=== PATIENT | female | born 1950 | race American Indian/Alaskan Native ===

== ENCOUNTER 2017-10-31 01:14 | Inpatient (IN) | payer MEDICARE, OTHER ==
[2017-10-31 01:26] VITALS: BMI 53.8
[2017-10-31] MEDS ORDERED: Albuterol-Ipratrop 3 mg / 0.5 (3 ml) UD IH STA (01:33)
--- NOTE | 2017-10-31 01:40 | ED PDOC ---
Arrival/HPI - General Historian: Patient - History of Present Illness Time/Duration: 1 week Symptom Onset: Gradual Symptom Course: Worsening Quality: Other (SOB) <Herber Maradiaga - Last Filed: 10/31/17 06:00> <Lloyd Castaneda - Last Filed: 10/31/17 06:48> - General Chief Complaint: Shortness Of Breath Time Seen by Provider: 10/31/17 01:18 - History of Present Illness Narrative History of Present Illness (Text): 10/31/17 01:59 Patient is a 66 year old female with a past medical history of diabetes, HTN and questionable CHF presenting with shortness of breath. Patient states she has been experiencing worsening shortness of breath with wheezing over the past week. The wheezing got so bad tonight that had to call for EMS to pick her up. Patient is a poor historian in that she is not positive of all of her past medical history and does not know her medications. Patient states she has been feeling well otherwise and has no other complaints. Denies fevers, chills, nausea, vomiting, diarrhea, constipation, chest pain, abdominal pain, vision changes, urinary symptoms, numbness or tingling. (Herber Maradiaga) Past Medical History - Provider Review Nursing Documentation Reviewed: Yes - Reproductive Menopause: Yes - Cardiac Hx Hypertension: Yes - Pulmonary Hx Asthma: Yes - Endocrine/Metabolic Hx Diabetes Mellitus Type 2: Yes - Musculoskeletal/Rheumatological Hx Back Pain: Yes - Psychiatric Hx Substance Use: No - Surgical History Hx Tubal Ligation: Yes - Anesthesia Hx Anesthesia: No <Herber Maradiaga - Last Filed: 10/31/17 06:00> Family/Social History - Physician Review Nursing Documentation Reviewed: Yes Family/Social History: No Known Family HX Smoking Status: Never Smoked Hx Alcohol Use: No Hx Substance Use: No <Herber Maradiaga - Last Filed: 10/31/17 06:00> Allergies/Home Meds <Herber Maradiaga - Last Filed: 10/31/17 06:00> <Lloyd Castaneda - Last Filed: 10/31/17 06:48> Allergies/Adverse Reactions: Allergies No Known Allergies Allergy (Verified 10/31/17 01:29) Home Medications: Home Meds Medication Instructions Recorded Confirmed Unobtainable 10/31/17 10/31/17 Review of Systems - Physician Review All systems were reviewed & negative as marked: Yes - Review of Systems Constitutional: Normal. absent: Fatigue, Fevers Eyes: Normal ENT: Normal Respiratory: SOB. absent: Cough, Sputum, Wheezing Cardiovascular: Normal. absent: Chest Pain, Palpitations, Calf Pain, GARCIA Gastrointestinal: Normal. absent: Abdominal Pain, Constipation, Diarrhea, Nausea, Vomiting Musculoskeletal: Normal Skin: Normal Neurological: Normal Endocrine: Normal Hemo/Lymphatic: Normal Psychiatric: Normal <Herber Maradiaga - Last Filed: 10/31/17 06:00> Physical Exam Vital Signs Reviewed: Yes Temperature: Afebrile Blood Pressure: Hypertensive Pulse: Tachycardic Respiratory Rate: Normal Appearance: Positive for: Non-Toxic, Comfortable, Ill-Appearing, Other ( morbidly obese) Pain Distress: None Mental Status: Positive for: Alert and Oriented X 3 Finger Stick Blood Glucose: 209 - Systems Exam Head: Present: Atraumatic, Normocephalic Pupils: Present: PERRL Extroacular Muscles: Present: EOMI Conjunctiva: Present: Normal Mouth: Present: Moist Mucous Membranes Nose (External): Present: Atraumatic Nose (Internal): Present: Normal Inspection, No Active Bleeding, Moist Neck: Present: Normal Range of Motion, Trachea Midline. No: MIDLINE TENDERNESS , JVD Respiratory/Chest: Present: Clear to Auscultation, Good Air Exchange, Wheezes ( end-expiratory), Decreased Breath Sounds (likely 2/2 body habitus ). No: Respiratory Distress, Accessory Muscle Use, Rales, Retracting, Rhonchi, Tachypneic Cardiovascular: Present: Regular Rate and Rhythm, Normal S1, S2. No: Murmurs Abdomen: No: Tenderness, Distention, Peritoneal Signs Back: Present: Normal Inspection Upper Extremity: Present: Normal Inspection, NORMAL PULSES. No: Cyanosis, Edema Lower Extremity: Present: Normal Inspection, Edema (1+ pitting b/l), NORMAL PULSES. No: CALF TENDERNESS Neurological: Present: GCS=15, Speech Normal, Motor Func Grossly Intact, Normal Sensory Function Skin: Present: Warm, Dry, Normal Color. No: Rashes Psychiatric: Present: Alert, Oriented x 3, Normal Insight, Normal Concentration <Herber Maradiaga - Last Filed: 10/31/17 06:00> Vital Signs Temp Pulse Resp BP Pulse Ox 10/31/17 06:20 95 H 18 149/64 100 10/31/17 06:09 155/54 H 10/31/17 05:45 93 H 18 147/76 99 10/31/17 04:10 98.5 F 97 H 18 150/71 100 10/31/17 02:01 100 H 20 141/98 H 96 10/31/17 01:30 14 99 10/31/17 01:25 115 H 21 171/101 H 99 Medical Decision Making Re-evaluation Time: 03:03 Reassessment Condition: Improving,but remains with symptoms - Lab Interpretations I have reviewed the lab results: Yes - RAD Interpretation Auto Mechanics Instructor: ED Physician, Radiologist - EKG Interpretation Interpreted by ED Physician: Yes Type: 12 lead EKG Comparison: No previous EKG avail. <Herber Maradiaga - Last Filed: 10/31/17 06:00> <Lloyd Castaneda - Last Filed: 10/31/17 06:48> ED Course and Treatment: 10/31/17 02:38 Happy, morbidly obese female speaking is broken sentences. She was brought in by EMS on a non-rebreather mask only, was not given any breathing treatments en route to hospital. Labs, CXR and EKG Duoneb 10/31/17 03:11 D-Dimer is positive. Patient is unable to fit in CT scanner due to large body habitus. Will get V/Q scan Patient placed back on NC Oxygen due to feeling SOB again after being on room air for 15-20 minutes 10/31/17 06:01 VQ scan normal, no signs of PE. Patient is still SOB. Will admit patient to tele for CHF exacerbation. Give 40mg of Lasix and 20meq of Potassium. (Herber Maradiaga) Impression: Patient seen and evaluated with ophthalmic medical technician. Pt, whose past medical history includes diabetes and hypertension, presented for shortness of breath and wheezing. Aware and agree with HPI, clinical findings, plan, and management. Plan: -- EKG -- CXR -- Labs, cardiac enzymes, BNP, D-dimer -- UA -- Duoneb -- Reassess and disposition 10/31/17 05:[address] Agee, who is aware and agrees with plan. Accepts pt in to his service. Pt will go to telemetry observation for CHF. Requests Dr. Ram. vice president of finance notified. (Lloyd Castaneda) - Lab Interpretations Lab Results: 10/31/17 01:23 10/31/17 01:23 Lab Results 10/31/17 01:29: POC Glucose (mg/dL) 209 H 10/31/17 01:23: NT-Pro-B Natriuret Pep 1490 H 10/31/17 01:23: Sodium 141, Potassium 3.8, Chloride 104, Carbon Dioxide 25, Anion Gap 16, BUN 13, Creatinine 0.7, Est GFR ( Amer) > 60, Est GFR (Non- Af Amer) > 60, Random Glucose 237 H, Calcium 9.6, Magnesium 1.6 L, Total Bilirubin 0.5, AST 15, ALT 14, Alkaline Phosphatase 81, Lactate Dehydrogenase 538, Total Creatine Kinase 41, Troponin I < 0.01, Total Protein 7.4, Albumin 3.5 , Globulin 3.9, Albumin/Globulin Ratio 0.9 L 10/31/17 01:23: D-Dimer, Quantitative 513 H 10/31/17 01:23: WBC 10.4, RBC 5.28, Hgb 11.4 L, Hct 36.4, MCV 68.9 L, MCH 21.6 L , MCHC 31.3, RDW 17.1 H, Plt Count 255, MPV 10.1, Gran % 71.7 H, Lymph % (Auto) 21.9 L, [place] % (Auto) 5.9, Eos % (Auto) 0.4 L, Baso % (Auto) 0.1, Gran # 7.48 H , Lymph # (Auto) 2.3, [place] # (Auto) 0.6, Eos # (Auto) 0.0, Baso # (Auto) 0.01 - RAD Interpretation Narrative RAD Interpretations (Text): 10/31/17 03:10 CXR - vascular congestion b/l, no pleural effusions 10/31/17 06:04 VQ scan - No findings to suggest pulmonary embolism. (Herber Maradiaga) Radiology Orders: 10/31/17 01:31 CHEST PORTABLE [RAD] Stat 10/31/17 04:43 LUNG PERF & VENT SCAN [NM] Stat - EKG Interpretation EKG Interpretation (Text): 10/31/17 01:37 Sinus Tachycardia at 112bpm, normal axis, flipped T waves in leads V4-V5, with PVCs (Herber Maradiaga) - Medication Orders Current Medication Orders: Discontinued Medications Albuterol/Ipratropium (Duoneb 3 Mg/0.5 Mg (3 Ml) Ud) 3 ml IH STAT STA Stop: 10/31/17 01:34 Last Admin: 10/31/17 01:34 Dose: 3 ml Furosemide (Lasix) 40 mg IVP STAT STA Stop: 10/31/17 06:00 Last Admin: 10/31/17 06:09 Dose: 40 mg MAR Blood Pressure Document 10/31/17 06:09 (Rec: 10/31/17 06:09 [id number]) Blood Pressure Blood Pressure (100/60-150/90) 155/54 IVP Administration Document 10/31/17 06:09 (Rec: 10/31/17 06:09 [id number]) Charges for Administration # of IVP Administrations 1 Potassium Chloride (K-Dur 20 Meq Er Tab) 20 meq PO STAT STA Stop: 10/31/17 06:00 Last Admin: 10/31/17 06:10 Dose: 20 meq - PA / SOUNDSCRIBER MECHANIC / Resident Statement / has reviewed & agrees with the documentation as recorded. / has examined the patient and agrees with the treatment plan. <Lloyd Castaneda - Last Filed: 10/31/17 06:48> Disposition/Present on Arrival - Present on Arrival Any Indicators Present on Arrival: Yes History of DVT/PE: No History of Uncontrolled Diabetes: Yes Urinary Catheter: No History of Decub. Ulcer: No History Surgical Site Infection Following: None - Disposition Have Diagnosis and Disposition been Completed?: Yes Disposition Time: 06:03 Patient Plan: Admission, Telemetry <Herber Maradiaga - Last Filed: 10/31/17 06:00> - Present on Arrival Any Indicators Present on Arrival: No History of DVT/PE: No History of Uncontrolled Diabetes: Yes Urinary Catheter: No History of Decub. Ulcer: No History Surgical Site Infection Following: None - Disposition Have Diagnosis and Disposition been Completed?: Yes <Lloyd Castaneda - Last Filed: 10/31/17 06:48> - Disposition Diagnosis: CHF exacerbation Disposition: HOSPITALIZED Patient Problems: Current Active Problems Problem Status Onset CHF exacerbation Acute Condition: GUARDED
[2017-10-31 02:05] LABS: BASO # 0.01 K/mm3 (0.0-2.0); BASO % 0.1 % (0.0-3.0); EOS % 0.4 % (1.5-5.0); GRAN # 7.48 (1.4-6.5); GRAN % 71.7 % (50.0-68.0); HEMOGLOBIN 11.4 g/dL (12.0-16.0); LYMPH # 2.3 (1.2-3.4); LYMPH % 21.9 % (22.0-35.0); MEAN CELL VOLUME 68.9 fl (80.0-105.0); MEAN CORPUSCULAR HEMOGLOBIN 21.6 pg (25.0-35.0); MEAN CORPUSCULAR HGB CONC 31.3 g/dl (31.0-37.0); MEAN PLATELET VOLUME 10.1 fl (7.0-11.0); MONO # 0.6 (0.1-0.6); MONO % 5.9 % (1.0-6.0); RBC 5.28 10^6/uL (3.5-6.1); RED CELL DISTRIBUTION WIDTH 17.1 % (11.5-14.5); WHITE BLOOD COUNT 10.4 10^3/ul (4.5-11.0)
[2017-10-31 02:15] LABS: ALB/GLOB RATIO 0.9 (1.1-1.8); ALBUMIN 3.5 g/dL (3.0-4.8); ALT/SGPT 14 U/L (7-56); AST/SGOT 15 U/L (14-36); BLOOD UREA NITROGEN 13 mg/dL (7-21); CALCIUM 9.6 mg/dL (8.4-10.5); GFR NON-AFRICAN AMERICAN > 60
[2017-10-31 02:26] LABS: TROPONIN I < 0.01 ng/mL
[2017-10-31] MEDS ORDERED: Iodixanol 320 MG/ML 100 ML BOTTLE IV ONE (03:00)
[2017-10-31] MEDS ORDERED: Potassium Chloride 20 mEq ER Tab PO STA (05:59)
[2017-10-31 07:13] LABS: URINE BILIRUBIN NEGATIVE (NEGATIVE); URINE BLOOD NEGATIVE (NEGATIVE); URINE GLUCOSE (UA) 100 mg/dL (NEGATIVE); URINE LEUKOCYTE ESTERASE NEGATIVE Leu/uL (NEGATIVE); URINE PROTEIN 100 mg/dL (<30 mg/dL); URINE UROBILINOGEN 0.2 E.U./dL (<1 E.U./dL)
[2017-10-31 07:35] LABS: URINE APPEARANCE CLEAR (CLEAR); URINE COLOR YELLOW (YELLOW)
[2017-10-31 07:49] LABS: URINE BACTERIA MANY (NEG)
[2017-10-31 07:50] LABS: URINE COARSE GRANULAR CAST TRACE /hpf (0-2)
[2017-10-31 07:51] LABS: URINE AMORPHOUS SEDIMENT SMALL
[2017-10-31] MEDS ORDERED: Magnesium Sulfate 2 gm/50 ml 2 GM/50 ML BAG IVPB ONE (08:23)
--- NOTE | 2017-10-31 09:04 | RAD ---
Date of service: 10/31/2017 HISTORY: sob COMPARISON: No prior. FINDINGS: LUNGS: No active pulmonary disease. PLEURA: No significant pleural effusion identified, no pneumothorax apparent. CARDIOVASCULAR: Mild cardiomegaly and mild vascular congestion OSSEOUS STRUCTURES: No significant abnormalities. VISUALIZED UPPER ABDOMEN: Normal. OTHER FINDINGS: None. IMPRESSION: Mild cardiomegaly and mild vascular congestion
[2017-10-31] MEDS ORDERED: Potassium Chloride 20 mEq ER Tab PO SCH (10:00)
--- NOTE | 2017-10-31 10:15 | CARD ---
APPROVED REPORT Date of service: 10/31/2017 EKG Measurement Heart [id number] <Conclusion> Sinus tachycardia with frequent premature ventricular complexes Possible Left atrial enlargement Nonspecific T wave abnormality Abnormal ECG
--- NOTE | 2017-10-31 10:42 | CT ---
Date of service: 10/31/2017 PROCEDURE: CT Chest without contrast HISTORY: CHF/PNEUMONIA COMPARISON: None available. TECHNIQUE: Contiguous axial images were obtained through the chest without intravenous contrast enhancement. Sagittal and coronal reconstructions were performed. Radiation dose (DLP): 71912.14 mGy-cm. This CT exam was performed using one or more of the following dose reduction techniques: Automated exposure control, adjustment of the mA and/or kV according to patient size, and/or use of iterative reconstruction technique. FINDINGS: LUNGS: Mild pulmonary vascular congestion is noted. There are small conglomerate calcified nodule seen at the left lung upper lobe image 38 series 3. No evidence of focal infiltrate or consolidation in the lungs to suggest pneumonia. MEDIASTINUM: The thoracic aorta is ectatic and tortuous. Mildly dilated ascending thoracic aorta is noted measures 3.6 centimeter in the transverse diameter. . No aneurysm. The heart is mildly enlarged. Normal sized heart. Mildly enlarged main pulmonary artery. No evidence of significant lymphadenopathy. PLEURA: There are small bilateral pleural effusions seen. BONES: No fracture. No destructive lesion. UPPER ABDOMEN: Moderate to large size hiatal hernia is noted. No evidence of acute pathology in the visualized portion of the upper abdomen. OTHER FINDINGS: None. IMPRESSION: No definite radiographic evidence of pneumonia. Large hiatus hernia. Cardiomegaly and small bilateral pleural effusions associated with [id number] pulmonary vascular congestion. Mildly enlarged main pulmonary artery.
[2017-10-31] MEDS: Enoxaparin 40 mg Syringe SC SCH (10:45)
[2017-10-31] MEDS: POLYETHYLENE GLYCOL 3350 17 GM/Dose PACKET PO SCH ×2 (10:47→17:06)
[2017-10-31] MEDS: Magnesium Oxide 400 mg Tab UD PO SCH ×2 (10:48→17:07)
[2017-10-31] MEDS: Levalbuterol 1.25 MG/3 ML Inhal Soln UD IH SCH ×2 (10:48→19:47)
--- NOTE | 2017-10-31 11:18 | CP.PCM.HP ---
<LakeishaLuis M wright - Last Filed: 10/31/17 12:34> History of Present Illness - History of Present Illness History of Present Illness: Luis M Suazo PGY2 H&P Note for Dr. Agee cc: sob x 3 days Ms Rosales is a 66 year old Female with a PMH of DM2, HTN, HLD , medication non-compliance, Asthma and questionable CHF with morbid obesity who presents to the ED with shortness of breath x1 week that is worsened over the past 3 days. She states that the dyspnea is exertional and relieved by rest and only partially by her rescue inhaler. She is unable to lay flat when she sleeps, at baseline. She patient does not have her complete list of medications with her and is not compliant with the medications she has at home (eg states she doesn't take her Lasix regularly). She states she was on ASA/Plavix before but had an episode of hematochezia and her meds were discontinued; she doesn't recall the reason for the DAPT. The patient denies any cough, chest pain, abdominal pain, fevers/chills, nausea/vomiting/diarrhea, recent travel or sick contacts. 12-pt ROS was reviewed and is otherwise unremarkable. PMD: Dr. Ramos PMH as above PSH tubal ligation SHx chews tobacco currently, denies Etoh or drug use, lives w/ son FHx non-contributory Meds as per MAR, reviewed Present on Admission - Present on Admission Any Indicators Present on Admission: No Review of Systems - Review of Systems All systems: reviewed and no additional remarkable complaints except (as per HPI ) Past Patient History - Past Medical History & Family History Past Medical History?: Yes - Past Social History Smoking Status: Never Smoked Chewing Tobacco Use: Yes Alcohol: None Drugs: Denies Home Situation {Lives}: With Family - CARDIAC Hx Congestive Heart Failure: Yes Hx Hypercholesterolemia: Yes Hx Hypertension: Yes - PULMONARY Hx Asthma: Yes - NEUROLOGICAL Hx Neurological Disorder: No - HEENT Hx HEENT Problems: No - RENAL Hx Chronic Kidney Disease: No - ENDOCRINE/METABOLIC Hx Diabetes Mellitus Type 2: Yes - HEMATOLOGICAL/ONCOLOGICAL Hx Anemia: Yes - INTEGUMENTARY Hx Dermatological Problems: No - MUSCULOSKELETAL/RHEUMATOLOGICAL Hx Back Pain: Yes - GASTROINTESTINAL Other/Comment: obesity - GENITOURINARY/GYNECOLOGICAL Hx Genitourinary Disorders: No - PSYCHIATRIC Hx Psychophysiologic Disorder: No Hx Substance Use: No - SURGICAL HISTORY Hx Tubal Ligation: Yes - ANESTHESIA Hx Anesthesia: No Meds Allergies/Adverse Reactions: Allergies Allergy/AdvReac Type Severity Reaction Status Date / Time No Known Allergies Allergy Verified 10/31/17 01:29 Physical Exam - Constitutional Appears: Well, Non-toxic, No Acute Distress - Head Exam Head Exam: NORMAL INSPECTION - Eye Exam Eye Exam: EOMI, Normal appearance, PERRL - ENT Exam ENT Exam: Mucous Membranes Dry - Neck Exam Neck exam: Positive for: Normal Inspection - Respiratory Exam Respiratory Exam: Decreased Breath Sounds, Wheezes. absent: Rales, Rhonchi, Respiratory Distress - Cardiovascular Exam Cardiovascular Exam: Tachycardia, +S1, +S2. absent: Systolic Murmur - GI/Abdominal Exam GI & Abdominal Exam: Soft. absent: Distended, Tenderness Additional comments: obese body habitus - Extremities Exam Extremities exam: Positive for: normal inspection. Negative for: pedal edema - Back Exam Back exam: NORMAL INSPECTION - Neurological Exam Neurological exam: Alert, Oriented x3 - Psychiatric Exam Psychiatric exam: Normal Mood - Skin Skin Exam: Warm Results - Vital Signs Recent Vital Signs: Last Vital Signs Temp 98.5 F 10/31/17 04:10 Pulse 95 H 10/31/17 06:20 Resp 18 10/31/17 06:20 BP 153/78 H 10/31/17 10:45 Pulse Ox 100 10/31/17 06:20 - Labs Result Diagrams: 10/31/17 01:23 10/31/17 01:23 Labs: Laboratory Results - last 24 hr 10/31/17 10/31/17 06:45 08:30 Retic Count 1.57 H Urine Color Yellow Urine Appearance Clear Urine pH 6.0 Ur Specific [place] 1.025 Urine Protein 100 H Urine Glucose (UA) 100 H Urine Ketones Negative Urine Blood Negative Urine Nitrate Negative Urine Bilirubin Negative Urine Urobilinogen 0.2 Ur Leukocyte Esterase Negative Urine RBC 1 - 3 Urine WBC 2 - 5 Ur Epithelial Cells 10 - 12 Amorphous Sediment Small Urine Bacteria Many Coarse Granular Casts Trace H Urine Other Uyeast Assessment & Plan - Assessment and Plan (Free Text) Assessment: 66 year old Female with a PMH of DM2, HTN, HLD, medication non- compliance, Asthma and questionable CHF with morbid obesity who presents to the ED with shortness of breath x1 week that is worsened over the past 3 days. BNP is noted to be elevated, and patient remains tachy. V/Q scan has low probability of PE; patient is not a candidate for CT/PE. CT Chest showed large hiatus hernia, no signs of pneumonia, cardiomegaly and moderate vascular congestion. Plan: 1. SOB likely 2/2 CHF exacerbation - cont diuresis w/ Lasix - Cardiology consulted, recs appreciated - Echo pending - TSH pending - strict I/O - LE duplex b/l - elevate head of bed - SCDs - OOB as tolerated - showed w/ assistance 2. DM2 w/ medication non-compliance - A1C pending - Levemir 20u HS - ISS - CCD - podiatry consulted, recs appreciated 3. Hx HTN - monitor vital signs 4. Hx HLD - Lipid panel - cont Lipitor 5. PPX - PTX for GI ppx - Lovenox for DVT ppx Case was reviewed and discussed with attending, Dr. Cnydie Suazo PGY2 <Tal Agee U - Last Filed: 11/02/17 17:51> Results - Vital Signs Recent Vital Signs: Last Vital Signs Temp 98.6 F 11/02/17 17:48 Pulse 50 L 11/02/17 17:48 Resp 16 11/02/17 17:48 BP 128/56 L 11/02/17 17:48 Pulse Ox 95 11/02/17 06:00 - Labs Result Diagrams: 11/02/17 05:15 11/02/17 05:15 Labs: Laboratory Results - last 24 hr 11/01/17 11/02/17 11/02/17 21:06 05:15 05:15 WBC 9.9 RBC 5.03 Hgb 10.8 L Hct 35.1 L MCV 69.8 L MCH 21.5 L MCHC 30.8 L RDW 17.1 H Plt Count 222 MPV 10.0 Gran % 70.8 H Lymph % (Auto) 20.8 L [place] % (Auto) 5.6 Eos % (Auto) 2.7 Baso % (Auto) 0.1 Gran # 7.01 H Lymph # (Auto) 2.1 [place] # (Auto) 0.6 Eos # (Auto) 0.3 Baso # (Auto) 0.01 PT INR APTT Sodium 140 Potassium 4.1 Chloride 98 Carbon Dioxide 34 H Anion Gap 12 BUN 16 Creatinine 0.8 Est GFR ( Amer) > 60 Est GFR (Non-Af Amer) > 60 POC Glucose (mg/dL) 200 H Random Glucose 274 H Calcium 8.9 Phosphorus 3.5 Magnesium 1.7 Total Bilirubin 0.5 Direct Bilirubin 0.2 AST 12 L D ALT 21 Alkaline Phosphatase 74 NT-Pro-B Natriuret Pep 351 Total Protein 6.5 Albumin 3.0 Globulin 3.5 Albumin/Globulin Ratio 0.9 L 11/02/17 11/02/17 11/02/17 05:15 07:21 12:14 WBC RBC Hgb Hct MCV MCH MCHC RDW Plt Count MPV Gran % Lymph % (Auto) [place] % (Auto) Eos % (Auto) Baso % (Auto) Gran # Lymph # (Auto) [place] # (Auto) Eos # (Auto) Baso # (Auto) PT 13.7 H INR 1.19 APTT 28.9 Sodium Potassium Chloride Carbon Dioxide Anion Gap BUN Creatinine Est GFR ( Amer) Est GFR (Non-Af Amer) POC Glucose (mg/dL) 272 H 233 H Random Glucose Calcium Phosphorus Magnesium Total Bilirubin Direct Bilirubin AST ALT Alkaline Phosphatase NT-Pro-B Natriuret Pep Total Protein Albumin Globulin Albumin/Globulin Ratio Attending/Attestation - Attestation I have personally seen and examined this patient.: Yes I have fully participated in the care of the patient.: Yes I have reviewed all pertinent clinical information: Yes Notes (Text): Please see/read my dictated notes.
[2017-10-31 11:25] LABS: IRON 56 ug/dL (45-180); URIC ACID 4.4 mg/dL (2.5-6.2)
[2017-10-31 11:34] LABS: % IRON SATURATION 22 % (20-55); TOTAL IRON BINDING CAPACITY 255 ug/dL (265-497)
[2017-10-31 11:39] LABS: TROPONIN I 0.03 ng/mL
[2017-10-31 11:45] LABS: FREE T4 1.28 ng/dL (0.78-2.19); T4 9.1 ug/dL (5.5-11.0)
[2017-10-31 11:58] LABS: T3 0.97 ng/mL (0.97-1.69)
[2017-10-31] MEDS: Fluconazole IV 200mg/100 ml NS 100 ML IVPB SCH (12:59)
--- NOTE | 2017-10-31 13:02 | NM ---
Date of service: 10/31/2017 COMPARISON: No prior similar study available for comparison. TECHNIQUE: 30.2 mCi technetium 99-m DTPA 5.4 mCI technetium 99-m MAA administered intravenously. FINDINGS: VENTILATION COMPONENT: Heterogeneous ventilation noted. PERFUSION COMPONENT: No evidence of segmental or subsegmental mismatched perfusion defect to suggest pulmonary embolus. IMPRESSION: Lowprobability ventilation perfusion scan for pulmonary embolism.
[2017-10-31] MEDS ORDERED: Pneumococcal 23-Valent Vaccine IM ONE (13:37)
--- NOTE | 2017-10-31 14:05 | US ---
HISTORY: Leg pain and swelling. Evaluate for DVT PHYSICIAN(S): Kishore Lacy MD. TECHNIQUE: Duplex sonography and color-flow Doppler with graded compression were used to evaluate the deep venous systems of both lower extremities. The exam is very limited by body habitus and edema. FINDINGS: The visualized deep venous systems of both lower extremities are sonographically normal and compressible. Normal wave forms and augmentation are seen. There is no sonographic evidence for deep venous thrombosis in the visualized segments of both lower extremities. IMPRESSION: No sonographic evidence for deep venous thrombosis in the visualized segments of both lower extremities. Very limited study.
[2017-10-31 16:45] LABS: TRANSFERRIN 195.92 mg/dL (206-381)
[2017-10-31 16:56] LABS: TROPONIN I 0.02 ng/mL
[2017-10-31] MEDS: Insulin Lispro (humaLOG) MEDIUM Coverage SC SCH ×2 (17:07→21:44)
[2017-10-31 17:12] LABS: FERRITIN 51.5 ng/mL
[2017-10-31 17:43] LABS: FOLATE 10.3 ng/mL
--- NOTE | 2017-10-31 19:49 | CARD ---
APPROVED REPORT Date of service: 10/31/2017 EXAM: Two-dimensional and M-mode echocardiogram with Doppler and color Doppler. INDICATION Congestive Heart Failure M-Mode DIMENSIONS Aortic Root3.00 (2.2-3.7cm)Aortic Cusp Exc.1.90 (1.5-2.0cm) Aortic Valve AoV Peak [id number]/Ata Peak GR.11mmHg Mitral Valve E/A ratio0.0 TDI E/Lateral E'0.0E/Medial E'0.0 Tricuspid Valve TR Peak [id number] [id number] Peak Gr.6mmHg [id number] LEFT VENTRICLE The Left Ventricle is moderately dilated. There is mild to moderate concentric left ventricular hypertrophy. Endocardial Boredr not visulazied.possibly moderately decreased LV Fx. There is possily global hypokinesis of the left ventricle. Transmitral Doppler flow pattern is Grade III-reversible restrictive diastolic dysfunction. No left ventricle thrombus noted on this study. There is no ventricular septal defect visualized. There is no left ventricular aneurysm. There is no mass noted in the left ventricle. RIGHT VENTRICLE The right ventricle is not well visualized. ATRIA The left atrium is mildly dilated. The right atrium is borderline dilated. The interatrial septum is intact with no evidence for an atrial septal defect. AORTIC VALVE The aortic valve is thickened but opens well. There is trace aortic regurgitation. There is no aortic valvular stenosis. There is no aortic valvular vegetation. MITRAL VALVE The mitral valve is thickened but opens well. Mitral regurgitation is mild. There is no mitral valve stenosis. There is no evidence of mitral valve prolapse. TRICUSPID VALVE The tricuspid valve leaflets are thickened , but open well. There is trace tricuspid regurgitation.RVSDP-16 mmof Hg. There is no tricuspid valve stenosis. PULMONIC VALVE The pulmonic valve is not well visualized, but probably normal There is no pulmonic valvular regurgitation. There is no pulmonic valvular stenosis. GREAT VESSELS The aortic root is not well visualized. The ascending aorta is not well seen. The pulmonary artery is not well visualized, The IVC was not visualized. PERICARDIAL EFFUSION There is no pleural effusion. There is no pericardial effusion. <Conclusion> TDS poor Sonic window. Possibly no Significant valvular heart Diz. Mitral regurgitation is mild. Endocardial Boredr not visulazied.possibly moderately decreased LV Fx. Suggest MUGA scan
[2017-10-31 20:23] LABS: TROPONIN I < 0.01 ng/mL
[2017-10-31] MEDS ORDERED: Insulin Detemir 100 units/ml Vial (Levemir) SC SCH (22:00)
--- NOTE | 2017-10-31 22:09 | HP ---
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 The patient came to the emergency room by the EMS, [facility] ambulance. REVIEW OF SYSTEMS: A 13-system review was done. The patient presented with above symptoms of shortness of breath for the 1 week according to the triage note. The patient also report some wheezing. The patient's symptom got too worse, this was significantly worse in the last 24 hours, which made the patient come to the emergency room. CODE STATUS: Full code. LIVING WILL ADVANCE DIRECTIVE: None. HEIGHT: 6 feet 1 inch. WEIGHT: 408 pounds. BODY MASS INDEX: 54. ALLERGIES: NONE. HOME MEDICATIONS: 1. Insulin 30 units, name unknown. 2. Omeprazole 40 mg daily. 3. Iron Ferrex 150 one capsule daily. 4. Diovan/valsartan 160 mg daily. 5. Alendronate 70 mg weekly. 6. Linzess 145 mcg daily. 7. Metformin 1000 mg twice a day. SOCIAL HISTORY: Denies smoking. Denies alcohol. Denies drug use. Denies communicable transmissible disease. OCCUPATIONAL HISTORY: Disabled. FAMILY HISTORY: Positive for hypertension, diabetes. MENSTRUAL HISTORY: Postmenopausal. PAST MEDICAL AND SURGICAL HISTORY: History of gastroesophageal reflux, history of anemia, history of hypertension, history of insulin-requiring diabetes mellitus, history of constipation, history of super morbid obesity with elevated body mass index of 54, history of hypertension, history of tubal ligation, history of asthma. Past medical history is also significant for history of type 2 diabetes, history of asthma, history of questionable congestive heart failure, history of tubal ligation. PHYSICAL EXAMINATION: GENERAL: The patient is seen lying in the stretcher in the emergency room in bed 2. The patient is alert, awake, oriented. The patient does not appear to be in any distress at present. VITAL SIGNS: T-max 98.5. Telemetry shows heart rate sinus rhythm at 95, 93, 94. Blood pressure 171/101, 141/98, 155/54, 142/62, 153/78. Respirations 18-20. O2 sat 97-98%. HEENT: Head examination, normocephalic, atraumatic. HEENT examination shows pinkish pale conjunctivae. Anicteric sclerae. No oropharyngeal lesion. NECK: Short and supple. CHEST: Kyphosis. LUNGS: Shows decreased air entry. Positive crackles, craps, rales. Occasional rhonchi and wheezing noted. CARDIOVASCULAR: S1, S2, regular rhythm. Questionable positive S4 gallop noted. ABDOMEN: Morbidly obese. No appreciable hepatosplenomegaly could be appreciated because of body habitus. GENITALIA: Female. EXTREMITIES: Shows trace swelling of the lower extremity. MUSCULOSKELETAL: Shows an elevated body mass index of 54. NEUROLOGIC: The patient is alert, awake, oriented x3. Cranial nerves II through XII grossly limited. Gait examination could not be tested. The patient is able to answer all the questions appropriately. PSYCHIATRIC: Not applicable and negative for anxiety, depression. Negative for suicidal or homicidal ideation. Negative for auditory or visual hallucination. DIAGNOSTICS: On 10/31/2017; WBC 10.4, hemoglobin/hematocrit 11.4/36.4, platelets are 255. Granulocytes 72. Retic count 1.57. D-dimer is 513. Sodium 141, potassium 3.8, chloride 104, CO2 of 25, anion gap 16, BUN 13, creatinine 0.7, GFR greater than 60. Glucose 209, 237. Uric acid 4.4, magnesium 1.6. BNP 1490. Troponin is 0.01 and 0.03. Cholesterol 155, LDL 89. TSH is pending. Urinalysis shows 100 protein, 100 glucose, trace granulocytes, many bacteria, and yeast noted. The patient had a chest x-ray and CT of the chest done, results were noted. EKG was done in the emergency room, results were reviewed. IMPRESSION AND PLAN: 1. Questionable and possible acute exacerbation of diastolic versus congestive heart failure with elevated BNP. 2. Questionable acute exacerbation of asthma. 3. Uncontrolled hypertension. 4. Sinus tachycardia. 5. Microcytic anemia. 6. Granulocytosis. 7. Elevator retic count of 1.57. 8. Elevated D-dimer, etiology undetermined. 9. Hyperglycemia. 10. Hypomagnesemia. 11. Super morbid obesity with elevated body mass index of 54. 12. Funguria. 13. Pyuria, bacteriuria, proteinuria, glycosuria. 14. Congestive heart failure with pulmonary vascular congestion and left upper lung fold calcified nodule. 15. A 3.6-cm dilated ascending thoracic aorta. 16. Cardiomegaly. 17. Small bilateral pleural effusion. 18. [id number] hiatal hernia. 19. Questionable pulmonary hypertension with mildly enlarged main pulmonary artery. 20. Insulin-requiring diabetes mellitus. 21. History of constipation. 22. History of iron-deficiency anemia. 23. History of hypertension, gastroesophageal reflux, constipation. Plan, at this time, the patient is admitted to [facility] telemetry. The patient has been ordered serial labs, serial cardiac enzymes. Urine cultures ordered. Cardiology consultation ordered. Diabetic education, TCU evaluation ordered. The patient was started on Colace 100 mg three times a day, Diflucan 200 mg IV daily, Ecotrin 81 mg daily, Humalog medium-dose sliding scale coverage, potassium supplementation ordered, Lasix started at 40 IV every 12 hours, Levemir ordered 20 units at bedtime, Lipitor 40 mg daily, Lovenox 40 mg subcu daily, magnesium oxide 400 twice a day in addition to the magnesium sulfate rider ordered, MiraLax 17 g twice a day, Protonix 40 mg daily, Tylenol p.r.n., Xopenex nebulizer every 6 hours, Zofran 4 IV every 4 hours. Venous Doppler of the lower extremity ordered. Preliminary result is negative. V/Q scan was done in the emergency room which was reported preliminary negative. Repeat EKG ordered. Echo ordered. Consistent carbohydrate diet ordered. Fingerstick blood sugar before meals and at bedtime. Out of bed, CALVIN stockings, SCDs, occupational therapy, physical therapy ordered. Urine culture ordered. At present, the patient was seen and admitted through the emergency room. The patient was explained about the details of her medical condition, diagnosis, treatment plan, management plan was discussed and explained to the patient at length and all questions concerned answered, which she acknowledged and understand. The patient is awaiting for a telemetry bed at this time. The patient's further management will be dependent upon the patient's clinical condition, hemodynamic status and as per the patient's response to therapeutic intervention as per the patient's diagnostic test results and as per recommendation by all the physician involved in the care of the patient. Dictated and electronically signed, not read. Tal Agee MD MTDMichael
[2017-11-01] MEDS: Levalbuterol 0.63 MG/3 ML Inhal Soln UD IH SCH ×4 (01:20→19:47)
[2017-11-01 02:58] LABS: MCH 21.9 pg (27.0-33.0); MCV 70.5 fL (80.0-100.0)
[2017-11-01] MEDS: Pantoprazole 40 mg EC Tab PO SCH (06:22)
[2017-11-01 06:43] LABS: BASO # 0.01 K/mm3 (0.0-2.0); BASO % 0.1 % (0.0-3.0); EOS # 0.2 (0.0-0.7); GRAN # 7.92 (1.4-6.5); GRAN % 77.7 % (50.0-68.0); HEMOGLOBIN 10.7 g/dL (12.0-16.0); LYMPH # 1.4 (1.2-3.4); LYMPH % 13.8 % (22.0-35.0); MEAN CELL VOLUME 69.5 fl (80.0-105.0); MEAN CORPUSCULAR HEMOGLOBIN 21.2 pg (25.0-35.0); MEAN CORPUSCULAR HGB CONC 30.5 g/dl (31.0-37.0); MEAN PLATELET VOLUME 9.9 fl (7.0-11.0); MONO # 0.7 (0.1-0.6); MONO % 6.4 % (1.0-6.0); RBC 5.05 10^6/uL (3.5-6.1); RED CELL DISTRIBUTION WIDTH 17.1 % (11.5-14.5); WHITE BLOOD COUNT 10.2 10^3/ul (4.5-11.0)
[2017-11-01 07:03] LABS: B-TYPE NATRIURETIC PEPTIDE 871 pg/mL (0-450)
[2017-11-01 07:10] LABS: ALB/GLOB RATIO 0.9 (1.1-1.8); ALBUMIN 3.5 g/dL (3.0-4.8); ALT/SGPT 11 U/L (7-56); AST/SGOT 16 U/L (14-36); BILIRUBIN,DIRECT 0.2 mg/dL (0.0-0.4); BLOOD UREA NITROGEN 15 mg/dL (7-21); CALCIUM 8.9 mg/dL (8.4-10.5); GFR NON-AFRICAN AMERICAN > 60
[2017-11-01] MEDS ORDERED: Potassium Chloride 20 mEq ER Tab PO STA (08:12)
[2017-11-01] MEDS: Insulin Lispro (humaLOG) MEDIUM Coverage SC SCH ×4 (08:47→22:31)
[2017-11-01 09:27] LABS: SICKLE CELL SCREEN Negative (Negative)
--- NOTE | 2017-11-01 10:28 | CARD ---
APPROVED REPORT Date of service: 11/01/2017 EKG Measurement Heart [id number] <Conclusion> Normal sinus rhythm Possible Left atrial enlargement Nonspecific T wave abnormality Abnormal ECG
[2017-11-01] MEDS: Enoxaparin 40 mg Syringe SC SCH (10:59)
[2017-11-01] MEDS: Fluconazole IV 200mg/100 ml NS 100 ML IVPB SCH (10:59)
[2017-11-01] MEDS: Magnesium Oxide 400 mg Tab UD PO SCH ×2 (10:59→17:42)
[2017-11-01] MEDS: POLYETHYLENE GLYCOL 3350 17 GM/Dose PACKET PO SCH ×2 (10:59→17:42)
[2017-11-01] MEDS: Potassium Chloride 20 mEq ER Tab PO SCH ×2 (11:00→17:40)
--- NOTE | 2017-11-01 14:10 | CP.PCM.CON ---
<Eddie,Luis M - Last Filed: 11/01/17 14:06> History of Present Illness - History of Present Illness History of Present Illness: Podiatry Consult note for Dr. Jarvis 66F with PMH DM2, HTN, HLD, medication non-compliance, Asthma and questionable CHF with morbid obesity seen and evaluated for painful, elongated, dystrophic toenails b/l. 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 She is AAO x 3 and NAD at time of visit. Denies any further pedal complaints at this time. Denies any recent N/V/F/C/CP/SOB/D Review of Systems - Review of Systems All systems: reviewed and no additional remarkable complaints except Review of Systems: as per HPI Past Patient History - Past Medical History & Family History Past Medical History?: Yes - Past Social History Smoking Status: Never Smoked Chewing Tobacco Use: Yes Alcohol: None Drugs: Denies Home Situation {Lives}: With Family - CARDIAC Hx Congestive Heart Failure: Yes Hx Hypercholesterolemia: Yes Hx Hypertension: Yes - PULMONARY Hx Asthma: Yes - NEUROLOGICAL Hx Neurological Disorder: No - HEENT Hx HEENT Problems: No - RENAL Hx Chronic Kidney Disease: No - ENDOCRINE/METABOLIC Hx Diabetes Mellitus Type 2: Yes - HEMATOLOGICAL/ONCOLOGICAL Hx Anemia: Yes - INTEGUMENTARY Hx Dermatological Problems: No - MUSCULOSKELETAL/RHEUMATOLOGICAL Hx Back Pain: Yes - GASTROINTESTINAL Other/Comment: obesity - GENITOURINARY/GYNECOLOGICAL Hx Genitourinary Disorders: No - PSYCHIATRIC Hx Psychophysiologic Disorder: No Hx Substance Use: No - SURGICAL HISTORY Hx Tubal Ligation: Yes - ANESTHESIA Hx Anesthesia: No Meds Allergies/Adverse Reactions: Allergies Allergy/AdvReac Type Severity Reaction Status Date / Time No Known Allergies Allergy Verified 10/31/17 01:29 - Medications Medications: Current Medications Acetaminophen (Tylenol 325mg Tab) 650 mg PO Q6 PRN PRN Reason: TEMP>=99.5F Acetaminophen (Tylenol 650 Mg Supp) 650 mg RC Q6H PRN PRN Reason: TEMP>=99.5F Aspirin (Ecotrin) 81 mg PO DAILY [facility] Last Admin: 11/01/17 10:59 Dose: 81 mg Atorvastatin Calcium (Lipitor) 40 mg PO DIN [facility] Last Admin: 10/31/17 17:06 Dose: 40 mg Docusate Sodium (Colace) 100 mg PO TID [facility] Last Admin: 11/01/17 10:59 Dose: 100 mg Enoxaparin Sodium (Lovenox) 40 mg SC DAILY [facility] PRN Reason: Protocol Last Admin: 11/01/17 10:59 Dose: 40 mg Ergocalciferol (Drisdol 50,000 Intl Units Cap) 1 cap PO Q7D [facility] Furosemide (Lasix) 40 mg IVP Q12H [facility] Last Admin: 11/01/17 08:48 Dose: 40 mg Fluconazole (Diflucan Iv 200 Mg/100 Ml Ns) 100 mls @ 100 mls/hr IVPB DAILY [facility] PRN Reason: Protocol Last Admin: 11/01/17 10:59 Dose: 100 mls/hr Insulin Detemir (Levemir) 20 unit SC HS [facility] Last Admin: 10/31/17 21:52 Dose: 20 unit Insulin Human Lispro (Humalog Med) 0 units SC ACHS [facility] PRN Reason: Protocol Last Admin: 11/01/17 12:24 Dose: 5 units Levalbuterol HCl (Xopenex) 0.63 mg IH [id number] [facility] Last Admin: 11/01/17 13:09 Dose: 0.63 mg Magnesium Oxide (Mag-Ox) 400 mg PO BID [facility] Last Admin: 11/01/17 10:59 Dose: 400 mg Ondansetron HCl (Zofran Inj) 4 mg IVP Q4H PRN PRN Reason: Nausea/Vomiting Pantoprazole Sodium (Protonix Ec Tab) 40 mg PO 0600 [facility] Last Admin: 11/01/17 06:22 Dose: 40 mg Polyethylene Glycol (Miralax) 17 gm PO BID [facility] Last Admin: 11/01/17 10:59 Dose: 17 gm Potassium Chloride (K-Dur 20 Meq Er Tab) 20 meq PO BID [facility] Last Admin: 11/01/17 11:00 Dose: Not Given Physical Exam - Constitutional Appears: Well, Non-toxic, No Acute Distress - Extremities Exam Additional comments: LE focused exam: Vasc: DP/PT pulses faintly palpable 1/4 b/l. CFT < 3 seconds to all digits b/l. Skin temperature warm to warm from proximal to distal WNL b/l. Minimal b/l 1+ pitting edema. Neuro: Epicritic and protective sensation grossly intact b/l Derm: Elongated, thickened, dystrophic toe nails to digits 1-5 b/l. Otherwise, no open lesions, wounds, maceration, xerosis, abnormal pigmentation or abnormal growths noted MSK: No gross deformities noted b/l. Pain with palpation of elongated nails - Neurological Exam Neurological exam: Alert, Oriented x3 - Psychiatric Exam Psychiatric exam: Normal Affect, Normal Mood Results - Vital Signs Recent Vital Signs: Last Vital Signs Temp 98.7 F 11/01/17 11:50 Pulse 94 H 11/01/17 11:50 Resp 20 11/01/17 11:50 BP 113/86 11/01/17 11:50 Pulse Ox 99 11/01/17 06:00 - Labs Result Diagrams: 11/01/17 05:45 11/01/17 05:45 Labs: Laboratory Results - last 24 hr 11/01/17 11/01/17 11/01/17 05:45 05:45 07:12 WBC 10.2 RBC 5.05 Hgb 10.7 L Hct 35.1 L MCV 69.5 L MCH 21.2 L MCHC 30.5 L RDW 17.1 H Plt Count 236 MPV 9.9 Gran % 77.7 H Lymph % (Auto) 13.8 L Early % (Auto) 6.4 H Eos % (Auto) 2.0 Baso % (Auto) 0.1 Gran # 7.92 H Lymph # (Auto) 1.4 Early # (Auto) 0.7 H Eos # (Auto) 0.2 Baso # (Auto) 0.01 Sodium 141 Potassium 3.2 L Chloride 101 Carbon Dioxide 33 Anion Gap 10 BUN 15 Creatinine 0.7 Est GFR ( Amer) > 60 Est GFR (Non-Af Amer) > 60 POC Glucose (mg/dL) 218 H Random Glucose 231 H Calcium 8.9 Phosphorus 3.0 Magnesium 1.8 Total Bilirubin 0.5 Direct Bilirubin 0.2 AST 16 ALT 11 Alkaline Phosphatase 77 NT-Pro-B Natriuret Pep 871 H Total Protein 7.3 Albumin 3.5 Globulin 3.8 Albumin/Globulin Ratio 0.9 L 11/01/17 11:12 WBC RBC Hgb Hct MCV MCH MCHC RDW Plt Count MPV Gran % Lymph % (Auto) Early % (Auto) Eos % (Auto) Baso % (Auto) Gran # Lymph # (Auto) Early # (Auto) Eos # (Auto) Baso # (Auto) Sodium Potassium Chloride Carbon Dioxide Anion Gap BUN Creatinine Est GFR ( Amer) Est GFR (Non-Af Amer) POC Glucose (mg/dL) 253 H Random Glucose Calcium Phosphorus Magnesium Total Bilirubin Direct Bilirubin AST ALT Alkaline Phosphatase NT-Pro-B Natriuret Pep Total Protein Albumin Globulin Albumin/Globulin Ratio Assessment & Plan - Assessment and Plan (Free Text) Assessment: 66F seen at bedside for elongated, thickened, dystrophic toenails 1-5 b/l Plan: Patient seen and evaluated with Dr. Jarvis Afebrile, absent leukocytosis LE US: No evidence of DVT Patient's toenails debrided with nail nippers to an appropriate level without incident No plan for surgical intervention at this time Patient stable from podiatric standpoint at this time Podiatry will sign off at this time Please reconsult in future as needed - Date & Time Date: 11/01/17 Time: 14:15 <Layton Jarvis - Last Filed: 11/01/17 16:55> Meds - Medications Medications: Current Medications Acetaminophen (Tylenol 325mg Tab) 650 mg PO Q6 PRN PRN Reason: TEMP>=99.5F Acetaminophen (Tylenol 650 Mg Supp) 650 mg RC Q6H PRN PRN Reason: TEMP>=99.5F Aspirin (Ecotrin) 81 mg PO DAILY [facility] Last Admin: 11/01/17 10:59 Dose: 81 mg Atorvastatin Calcium (Lipitor) 40 mg PO DIN [facility] Last Admin: 10/31/17 17:06 Dose: 40 mg Docusate Sodium (Colace) 100 mg PO TID [facility] Last Admin: 11/01/17 10:59 Dose: 100 mg Enoxaparin Sodium (Lovenox) 40 mg SC DAILY [facility] PRN Reason: Protocol Last Admin: 11/01/17 10:59 Dose: 40 mg Ergocalciferol (Drisdol 50,000 Intl Units Cap) 1 cap PO Q7D [facility] Furosemide (Lasix) 40 mg IVP Q12H [facility] Last Admin: 11/01/17 08:48 Dose: 40 mg Fluconazole (Diflucan Iv 200 Mg/100 Ml Ns) 100 mls @ 100 mls/hr IVPB DAILY [facility] PRN Reason: Protocol Last Admin: 11/01/17 10:59 Dose: 100 mls/hr Insulin Detemir (Levemir) 20 unit SC HS [facility] Last Admin: 10/31/17 21:52 Dose: 20 unit Insulin Human Lispro (Humalog Med) 0 units SC ACHS [facility] PRN Reason: Protocol Last Admin: 11/01/17 12:24 Dose: 5 units Levalbuterol HCl (Xopenex) 0.63 mg IH [id number] [facility] Last Admin: 11/01/17 13:09 Dose: 0.63 mg Magnesium Oxide (Mag-Ox) 400 mg PO BID [facility] Last Admin: 11/01/17 10:59 Dose: 400 mg Ondansetron HCl (Zofran Inj) 4 mg IVP Q4H PRN PRN Reason: Nausea/Vomiting Pantoprazole Sodium (Protonix Ec Tab) 40 mg PO 0600 [facility] Last Admin: 11/01/17 06:22 Dose: 40 mg Polyethylene Glycol (Miralax) 17 gm PO BID [facility] Last Admin: 11/01/17 10:59 Dose: 17 gm Potassium Chloride (K-Dur 20 Meq Er Tab) 20 meq PO BID [facility] Last Admin: 11/01/17 11:00 Dose: Not Given Results - Vital Signs Recent Vital Signs: Last Vital Signs Temp 98.7 F 11/01/17 11:50 Pulse 94 H 11/01/17 11:50 Resp 20 11/01/17 11:50 BP 113/86 11/01/17 11:50 Pulse Ox 99 11/01/17 06:00 - Labs Result Diagrams: 11/01/17 05:45 11/01/17 05:45 Labs: Laboratory Results - last 24 hr 11/01/17 11/01/17 11/01/17 05:45 05:45 07:12 WBC 10.2 RBC 5.05 Hgb 10.7 L Hct 35.1 L MCV 69.5 L MCH 21.2 L MCHC 30.5 L RDW 17.1 H Plt Count 236 MPV 9.9 Gran % 77.7 H Lymph % (Auto) 13.8 L Early % (Auto) 6.4 H Eos % (Auto) 2.0 Baso % (Auto) 0.1 Gran # 7.92 H Lymph # (Auto) 1.4 Early # (Auto) 0.7 H Eos # (Auto) 0.2 Baso # (Auto) 0.01 Sodium 141 Potassium 3.2 L Chloride 101 Carbon Dioxide 33 Anion Gap 10 BUN 15 Creatinine 0.7 Est GFR ( Amer) > 60 Est GFR (Non-Af Amer) > 60 POC Glucose (mg/dL) 218 H Random Glucose 231 H Calcium 8.9 Phosphorus 3.0 Magnesium 1.8 Total Bilirubin 0.5 Direct Bilirubin 0.2 AST 16 ALT 11 Alkaline Phosphatase 77 NT-Pro-B Natriuret Pep 871 H Total Protein 7.3 Albumin 3.5 Globulin 3.8 Albumin/Globulin Ratio 0.9 L 11/01/17 11/01/17 11:12 16:20 WBC RBC Hgb Hct MCV MCH MCHC RDW Plt Count MPV Gran % Lymph % (Auto) Early % (Auto) Eos % (Auto) Baso % (Auto) Gran # Lymph # (Auto) Early # (Auto) Eos # (Auto) Baso # (Auto) Sodium Potassium Chloride Carbon Dioxide Anion Gap BUN Creatinine Est GFR ( Amer) Est GFR (Non-Af Amer) POC Glucose (mg/dL) 253 H 234 H Random Glucose Calcium Phosphorus Magnesium Total Bilirubin Direct Bilirubin AST ALT Alkaline Phosphatase NT-Pro-B Natriuret Pep Total Protein Albumin Globulin Albumin/Globulin Ratio Attending/Attestation - Attestation I have personally seen and examined this patient.: Yes I have fully participated in the care of the patient.: Yes I have reviewed all pertinent clinical information: Yes
[2017-11-01] MEDS ORDERED: Dextrose 50% SYRINGE Inj (50 ml) IV PRN (20:21)
--- NOTE | 2017-11-01 22:42 | PN ---
DATE: 11/01/2017 SUBJECTIVE: The patient is seen in room 261, bed 2. The patient's family is at bedside. The patient is awake, responsive. The patient is seen lying in the bed. The patient does not appear to be in any distress. Overnight nurse's notes were reviewed. The patient stayed in the bed most of the time according to the nurses' notes. The patient was found to be alert, awake, oriented x3. The patient states that she has been urinating significantly more since on IV Lasix. PHYSICAL EXAMINATION: VITAL SIGNS: T-max 98.7, 97.8, 95.8. Telemetry shows sinus rhythm 86, 94, 101, 99, 94. Telemetry monitoring shows sinus rhythm. Intermittent sinus tachycardia. Blood pressure in the last 24 hours 145/64, 123/76, 106/66, 113/86; respirations 20; O2 sat 99% on nasal cannula. Yesterday's output 1000 mL. Today, output is 2400. HEENT: The patient's head examination normocephalic, atraumatic. HEENT examination shows pinkish, pale conjunctivae. Anicteric sclerae. No oropharyngeal lesion. No neck rigidity. CHEST: Kyphosis. LUNGS: Shows positive rhonchi. Decreasing creps and crackles. Decreased breath sound at the bases, left more than the right. CARDIOVASCULAR: S1, S2. Regular rhythm. Questionable soft systolic murmur, left sternal border, right second intercostal space, left second intercostal space. Questionable S4 gallop. ABDOMEN: Morbidly obese. Unable to appreciate any hepatosplenomegaly. No guarding. No rigidity. No rebound tenderness. GENITALIA: Female. RECTAL: Deferred. EXTREMITY: Shows trace swelling of the lower extremity. MUSCULOSKELETAL: Shows an elevated body mass index of 52.2. NEUROLOGICAL: The patient is alert, awake, oriented x3. Cranial nerves II through XII grossly intact and limited. Gait examination could not be tested. DIAGNOSTICS: On 11/01/2017, hemoglobin and hematocrit 10.7 and 35.1. Granulocytes 78% segs. Chemistry significant for potassium of 3.2; glucose 231, 248, 218, 253, 234; hemoglobin A1c 9.5; calcium 8.9; uric acid is normal at 4.49; phosphorus 3; magnesium 1.8. LFTs are normal. Four sets of troponins are negative. BNP is down to 871 from 1490. Thyroid profile is within normal limit. Vitamin D 25-hydroxy 13.2, cholesterol 155, LDL 89. Urinalysis is noted. Urine cultures no growth. CT of the chest, venous Doppler of the lower extremity, V/Q scan of the lungs reviewed. Echocardiogram results were reviewed and explained to the patient. EKG results were reviewed, which was explained to the patient. Lab data was reviewed and explained to the patient. IMPRESSION AND PLAN: 1. Acute systolic congestive heart failure with elevated BNP and pulmonary vascular congestion. 2. Left upper lobe conglomerate calcified nodule. 3. A 3.6-cm dilated ascending thoracic aorta. 4. Questionable pulmonary hypertension with enlarged main pulmonary artery. 5. Cardiomegaly. 6. Bilateral pleural effusion. 7. Moderate to large hiatal hernia. 8. Super morbid obesity with elevated body mass index of 53. 9. Questionable mild exacerbation of asthma. 10. Uncontrolled hypertension. 11. Sinus tachycardia. 12. Microcytic anemia. 13. Elevated D-dimer, etiology undetermined. 14. Uncontrolled diabetes mellitus with insulin-requiring diabetes mellitus with hyperglycemia and hemoglobin A1c of greater than 9.4. 15. Hypomagnesemia. 16. Funguria, pyuria, bacteriuria, proteinuria, glycosuria. 17. Cardiomegaly. 18. Insulin-requiring diabetes mellitus. 19. History of constipation, iron-deficiency anemia, gastroesophageal reflux. 20. Hypertension. 21. Gait dysfunction and deconditioning. 22. Granulocytosis. 23. Hypovitaminosis D. 24. Hypokalemia. 25. Uncontrolled insulin-requiring diabetes mellitus with hemoglobin A1c of 9.5. 26. Moderately dilated left ventricle with moderate concentric left ventricular hypertrophy with nonvisualized endocardial border. 27. Possible moderately reduced left ventricular systolic function and possible left ventricular global hypokinesis and grade 3 reversible restrictive diastolic dysfunction. 28. Left and right atrial enlargement. 29. Dystrophic bilateral feet toenails. 30. Status post bilateral feet toenail debridement. 31. Poor personal hygienic status. 32. Constipation. 1. Questionable and possible acute exacerbation of diastolic versus congestive heart failure with elevated BNP. 2. Questionable acute exacerbation of asthma. 3. Uncontrolled hypertension. 4. Sinus tachycardia. 5. Microcytic anemia. 6. Granulocytosis. 7. Elevator retic count of 1.57. 8. Elevated D-dimer, etiology undetermined. 9. Hyperglycemia. 10. Hypomagnesemia. 11. Super morbid obesity with elevated body mass index of 54. 12. Funguria. 13. Pyuria, bacteriuria, proteinuria, glycosuria. 14. Congestive heart failure with pulmonary vascular congestion and left upper lung fold calcified nodule. 15. A 3.6-cm dilated ascending thoracic aorta. 16. Cardiomegaly. 17. Small bilateral pleural effusion. 18. [id number] hiatal hernia. 19. Questionable pulmonary hypertension with mildly enlarged main pulmonary artery. 20. Insulin-requiring diabetes mellitus. 21. History of constipation. 22. History of iron-deficiency anemia. 23. History of hypertension, gastroesophageal reflux, constipation. At present, the patient has been ordered a MUGA scan, which is pending. The patient has been ordered serial labs. The patient has been ordered current consultation, Cardiology and Podiatry. The patient is ordered Colace 100 three times a day, Diflucan 200 mg IV daily, Drisdol 50,000 units weekly, Ecotrin 81 mg daily, Humalog medium-dose sliding scale coverage, K-Dur 20 mEq twice a day with potassium supplementation ordered, K-Dur increased to 20 twice a day, Lasix 40 IV every 12, Levemir increased to 30 units at bedtime because of hyperglycemia and uncontrolled diabetes, Lipitor 40 mg daily, Lovenox 40 mg subcu daily, magnesium oxide 400 twice a day, MiraLax 17 g twice a day, Protonix 40 mg daily for GI prophylaxis, Lovenox 40 subcu daily for DVT prophylaxis, Tylenol p.r.n., Xopenex nebulizer every 6 hours, Zofran 4 mg IV every 4 p.r.n., oxygen nasal cannula 2 L. Consistent carbohydrate diet ordered. Out of bed to chair ordered. The patient SCDs, CALVIN stockings ordered. The patient was ordered physical therapy, occupational therapy. Stool occult blood ordered. Urinalysis ordered. The patient is awaiting further recommendation by the finance administrator. The patient is seen by physical therapist. Their recommendation is Transitional Care Unit evaluation, which has already been ordered. At present, the patient is to be continued on above therapeutic intervention until further recommendation by Cardiology and other subspecialty. The patient has been updated about her condition, diagnosis, treatment plan, management plan. The patient was counseled about weight loss, exercise, increased activity. The patient was advised close outpatient followup. All questions concerned answered. Dictated and electronically signed, not read. Tal Agee MD [facility]
--- NOTE | 2017-11-01 23:22 | CON ---
DATE: 11/01/2017 CARDIOLOGY CONSULTATION HISTORY OF PRESENT ILLNESS: The patient is a 66-year-old woman who presents with shortness of breath. She denies previous cardiac history. She denies chest pain. She does suffer from bronchospasm for which she is on albuterol at home. She suffers from diabetes mellitus, hypertension, and hypercholesterolemia. She denies angina. There is a question of edema in the lower extremities. SOCIAL HISTORY: The patient does not smoke. REVIEW OF SYSTEMS: A 14-point review of systems reviewed in detail. Other than dyspnea, there are no other cardiac symptoms noted. PHYSICAL EXAMINATION: GENERAL: The patient is a morbidly obese woman, in no acute distress. VITAL SIGNS: Blood pressure 113/86, heart rates in the 90s. NECK: Negative JVD. LUNGS: No rales noted. HEART: Reveals S1, S2. EXTREMITIES: Trace edema. EKG shows normal sinus rhythm with no acute changes. LABORATORY DATA: Troponin is negative x2. ProBNP is 871. BUN and creatinine are 15 and 0.7 with a glucose of 231. Hemoglobin is 10.7. IMPRESSION: 1. Dyspnea. 2. Morbid obesity. 3. Diabetes mellitus. 4. Hypertension. 5. Hypercholesterolemia. 6. No evidence for acute coronary syndrome. 7. History of bronchospasm. Given these findings, we will obtain an echocardiogram to evaluate LV function. The patient currently is on Lasix. Kishore Ram MD
[2017-11-02] MEDS: Insulin Detemir 100 units/ml Vial (Levemir) SC SCH (00:08)
[2017-11-02] MEDS: Levalbuterol 0.63 MG/3 ML Inhal Soln UD IH SCH ×4 (01:45→19:54)
[2017-11-02] MEDS: Pantoprazole 40 mg EC Tab PO SCH (05:52)
[2017-11-02 06:25] LABS: BASO # 0.01 K/mm3 (0.0-2.0); BASO % 0.1 % (0.0-3.0); EOS # 0.3 (0.0-0.7); EOS % 2.7 % (1.5-5.0); GRAN # 7.01 (1.4-6.5); GRAN % 70.8 % (50.0-68.0); HEMOGLOBIN 10.8 g/dL (12.0-16.0); LYMPH # 2.1 (1.2-3.4); LYMPH % 20.8 % (22.0-35.0); MEAN CELL VOLUME 69.8 fl (80.0-105.0); MEAN CORPUSCULAR HEMOGLOBIN 21.5 pg (25.0-35.0); MEAN CORPUSCULAR HGB CONC 30.8 g/dl (31.0-37.0); MONO # 0.6 (0.1-0.6); MONO % 5.6 % (1.0-6.0); RBC 5.03 10^6/uL (3.5-6.1); RED CELL DISTRIBUTION WIDTH 17.1 % (11.5-14.5); WHITE BLOOD COUNT 9.9 10^3/ul (4.5-11.0)
[2017-11-02 06:30] LABS: INR 1.19; PARTIAL THROMBOPLASTIN TIME 28.9 Seconds (25.1-36.5); PROTHROMBIN TIME 13.7 SECONDS (9.4-12.5)
[2017-11-02 06:44] LABS: B-TYPE NATRIURETIC PEPTIDE 351 pg/mL (0-450)
[2017-11-02 06:46] LABS: ALB/GLOB RATIO 0.9 (1.1-1.8); ALT/SGPT 21 U/L (7-56); AST/SGOT 12 U/L (14-36); BILIRUBIN,DIRECT 0.2 mg/dL (0.0-0.4); BLOOD UREA NITROGEN 16 mg/dL (7-21); CALCIUM 8.9 mg/dL (8.4-10.5); GFR NON-AFRICAN AMERICAN > 60
[2017-11-02] MEDS: Insulin Lispro (humaLOG) MEDIUM Coverage SC SCH ×3 (08:35→17:13)
[2017-11-02] MEDS: Magnesium Oxide 400 mg Tab UD PO SCH ×2 (08:35→14:49)
--- NOTE | 2017-11-02 09:40 | CARD ---
APPROVED REPORT Date of service: 11/02/2017 EKG Measurement Heart [id number] ID [id number] <Conclusion> NSR with frequent APCs and PVCs Abnormal ECG
[2017-11-02] MEDS: POLYETHYLENE GLYCOL 3350 17 GM/Dose PACKET PO SCH ×2 (09:41→17:58)
[2017-11-02] MEDS: Potassium Chloride 20 mEq ER Tab PO SCH ×2 (09:42→17:57)
[2017-11-02] MEDS: Fluconazole IV 200mg/100 ml NS 100 ML IVPB SCH (09:42)
[2017-11-02] MEDS: Enoxaparin 40 mg Syringe SC SCH (09:46)
[2017-11-02] MEDS ORDERED: Ergocalciferol 50,000 Intl Units Cap PO SCH (10:00)
--- NOTE | 2017-11-02 22:13 | CARD ---
APPROVED REPORT Date of service: 11/02/2017 INDICATION Congestive Heart Failure PROCEDURE The above named patient recieved 30 millicuries of Tc99m tagged red blood cells intravenously. After achieving equilibrium, gated imaging of 16/frame/cycle was performed utillizing Gamma camera interfaced with a digital computer and gated device. Gated imaging was then performed in the left anterior oblique, anterior, and the left lateral projections. Findings Left Ventricle: The quality of the study is suboptimal due to limited positioning. The left ventricle is moderately enlarged. The right ventricle is normal in size. Wall motion study shows diffuse hypokinesis of the left ventricle. RV wall motion is normal. The right atrium is dynamic. The remainder of the study is unremarkable. Impressions Technically suboptiml study. Mild to moderate LV dysfunction with diffuse hypokinesis. LVEF = 41%. Normal RV wall motion.
--- NOTE | 2017-11-02 23:36 | PN ---
DATE: 11/02/2017 SUBJECTIVE: The patient is seen in telemetry bed 261, bed 2 today. The patient for the first time is sitting up in the bed, having lunch. The patient is in no acute distress. Overnight nurse's notes were reviewed. The patient stayed in the bed in the last 24 hours. The patient slept well without any complaints of shortness of breath or chest pain. PHYSICAL EXAMINATION: VITAL SIGNS: T-max is 98.8-98.6. Telemetry shows sinus rhythm, heart rate 97, 94, 98, blood pressure 128/56, 137/82, 140/80, 132/84, 121/86, respiration 18-20, O2 sat is 95, 99, 100%. Intake output noted. HEENT: Examination normocephalic, atraumatic. HEENT examination shows pink conjunctivae. Anicteric sclerae. No oropharyngeal lesion. No neck rigidity. CHEST: Kyphosis. LUNGS: Shows decreased breath sound at the bases, left more than the right. CARDIOVASCULAR: S1, S2, regular rhythm. ABDOMEN: Morbidly obese. No hepatosplenomegaly appreciated. GENITALIA: Female. RECTAL: Deferred. EXTREMITIES: Shows trace swelling of the lower extremity. MUSCULOSKELETAL: Shows a body mass index of 53. NEUROLOGIC: The patient is alert, awake, oriented x3. DIAGNOSTICS: From 11/02/2017: CBC is hemoglobin/hematocrit of 10.8/35.1, platelet 222,000. Sickle cell screen negative. PT/PTT 13.7/28.9. Sodium 140, potassium 4.1, chloride 98, CO2 of 34, anion gap 12, BUN 16, creatinine 0.8, GFR greater than 60. Fingerstick blood sugar 233, 272, 274, 200, 234, 253, calcium 8.9, phosphorus 3.5, magnesium 1.1. LFTs are normal. BNP is 351. Urine cultures negative. MUGA scan pending. EKG shows sinus rhythm. Echocardiogram noted. IMPRESSION AND PLAN: 1. Acute systolic congestive heart failure with elevated BNP. 2. Moderately dilated left ventricle with moderate left ventricular hypertrophy. 3. Moderately reduced left ventricular function with nonvisualized endocardial border. 4. Possible left ventricular global hypokinesis. 5. Grade 3 reversible restrictive diastolic dysfunction. 6. Right and left atrial enlargement. 7. Trace aortic, mild mitral and trace tricuspid regurgitation. 8. No suspicious super morbid obesity with elevated body mass index of 53. 9. Hypertension. 10. Microcytic anemia. 11. Elevated D-dimer, etiology undetermined. 12. Uncontrolled insulin-requiring diabetes mellitus with hyperglycemia and hemoglobin A1c of 9.5. 13. Hypovitaminosis D. 14. Hyperlipidemia. 15. Proteinuria, glycosuria, bacteriuria and funguria. 16. Left atrial enlargement. PLAN: At this time, the patient has been ordered serial labs. Current consultation, Cardiology and Podiatry. TCU referral ordered. Current medications, Colace 100 mg 3 times a day, Diflucan 200 mg IV daily, Drisdol 50,000 units weekly, aspirin 81 mg daily, Humalog medium dose sliding scale coverage before lunch and at bedtime, K-Dur 20 mEq twice a day, Lasix 40 mg IV daily, Levemir increased to 30 units at bedtime, Lipitor 40 mg daily, Lovenox 40 mg subcu daily, magnesium oxide 400 every 8 hours, MiraLax 17 g twice a day, Protonix 40 mg daily, Tylenol 650 p.r.n., Xopenex nebulizer every 6 hours, Zofran 4 mg IV every 4 hours. Out of bed, CALVIN stocking, physical therapy, occupational therapy ordered. The patient was seen by physical therapist. Their recommendation was Transitional Care Unit. The patient's IV Lasix is decreased to 40 mg IV every 24 hours. The patient's Diflucan will be discontinued. The patient will be continued on the above therapeutic intervention with close Cardiology, Podiatry followup. The patient is again advised and updated about the patient's condition, diagnosis. The patient's MUGA scan report will be reviewed when available. Dictated and electronically signed, not read. Tal Agee MD
[2017-11-03] MEDS: Insulin Detemir 100 units/ml Vial (Levemir) SC SCH ×2 (00:01→22:12)
[2017-11-03] MEDS: Insulin Lispro (humaLOG) MEDIUM Coverage SC SCH ×5 (00:02→22:14)
[2017-11-03] MEDS: Levalbuterol 0.63 MG/3 ML Inhal Soln UD IH SCH ×4 (01:06→19:40)
[2017-11-03] MEDS: Pantoprazole 40 mg EC Tab PO SCH (06:13)
[2017-11-03] MEDS: Magnesium Oxide 400 mg Tab UD PO SCH ×4 (06:31→22:14)
[2017-11-03 06:41] VITALS: RESP 20
[2017-11-03 06:48] LABS: B-TYPE NATRIURETIC PEPTIDE 370 pg/mL (0-450)
[2017-11-03 06:55] LABS: ALB/GLOB RATIO 0.9 (1.1-1.8); ALBUMIN 3.3 g/dL (3.0-4.8); ALT/SGPT 15 U/L (7-56); AST/SGOT 18 U/L (14-36); BILIRUBIN,DIRECT 0.2 mg/dL (0.0-0.4); BLOOD UREA NITROGEN 17 mg/dL (7-21); CALCIUM 9.3 mg/dL (8.4-10.5); GFR NON-AFRICAN AMERICAN > 60
[2017-11-03] MEDS: Enoxaparin 40 mg Syringe SC SCH (10:05)
[2017-11-03] MEDS: Potassium Chloride 20 mEq ER Tab PO SCH ×2 (10:06→17:44)
[2017-11-03] MEDS: POLYETHYLENE GLYCOL 3350 17 GM/Dose PACKET PO SCH ×4 (10:06→17:53)
--- NOTE | 2017-11-03 13:57 | CP.PCM.PN ---
Subjective - Date & Time of Evaluation Date of Evaluation: 11/03/17 Time of Evaluation: 09:57 - Subjective Subjective: Luis M Suazo PGY2 IM Progress Note for Dr. Agee Patient was seen and examined at bedside. She states that her breathing has improved, and her cough has improved. She denies no fever/chills/shortness of breath/chest pain/nausea/vomiting. Patient is ambulating with PT. There were no acute overnight events. Objective - Vital Signs/Intake and Output Vital Signs (last 24 hours): Temp Pulse Resp BP Pulse Ox 98.5 F 96 H 20 118/78 99 11/03/17 12:00 11/03/17 12:00 11/03/17 12:00 11/03/17 12:00 11/03/17 10:01 Intake and Output: 11/03/17 11/03/17 06:59 18:59 Intake Total 720 Output Total 700 Balance 20 - Medications Medications: Current Medications Acetaminophen (Tylenol 325mg Tab) 650 mg PO Q6 PRN PRN Reason: TEMP>=99.5F Acetaminophen (Tylenol 650 Mg Supp) 650 mg RC Q6H PRN PRN Reason: TEMP>=99.5F Aspirin (Ecotrin) 81 mg PO DAILY [facility] Last Admin: 11/03/17 10:06 Dose: 81 mg Atorvastatin Calcium (Lipitor) 40 mg PO DIN [facility] Last Admin: 11/02/17 17:57 Dose: 40 mg Dextrose (Dextrose 50% Inj) 0 ml IV STAT PRN; Protocol PRN Reason: Hypoglycemia Protocol Docusate Sodium (Colace) 100 mg PO TID [facility] Last Admin: 11/03/17 10:14 Dose: Not Given Enoxaparin Sodium (Lovenox) 40 mg SC DAILY [facility] PRN Reason: Protocol Last Admin: 11/03/17 10:05 Dose: 40 mg Ergocalciferol (Drisdol 50,000 Intl Units Cap) 1 cap PO Q7D [facility] Last Admin: 11/02/17 12:36 Dose: 1 cap Furosemide (Lasix) 40 mg IVP BID [facility] Dextrose (Dextrose 5% In Water 1000 Ml) 1,000 mls @ 0 mls/hr IV .Q0M PRN; Protocol; Per Protocol PRN Reason: Hypoglycemia Protocol Insulin Detemir (Levemir) 30 unit SC [facility] Last Admin: 11/03/17 00:01 Dose: 30 units Insulin Human Lispro (Humalog Med) 0 units SC ACHS [facility] PRN Reason: Protocol Last Admin: 11/03/17 12:23 Dose: 3 units Levalbuterol HCl (Xopenex) 0.63 mg IH [id number] [facility] Last Admin: 11/03/17 13:03 Dose: 0.63 mg Losartan Potassium (Cozaar) 25 mg PO DAILY [facility] Magnesium Oxide (Mag-Ox) 400 mg PO Q8H [facility] Last Admin: 11/03/17 06:31 Dose: 400 mg Ondansetron HCl (Zofran Inj) 4 mg IVP Q4H PRN PRN Reason: Nausea/Vomiting Pantoprazole Sodium (Protonix Ec Tab) 40 mg PO 0600 [facility] Last Admin: 11/03/17 06:13 Dose: 40 mg Polyethylene Glycol (Miralax) 17 gm PO BID [facility] Last Admin: 11/03/17 10:14 Dose: Not Given Potassium Chloride (K-Dur 20 Meq Er Tab) 20 meq PO BID [facility] Last Admin: 11/03/17 10:06 Dose: 20 meq - Labs Labs: 11/02/17 05:15 11/03/17 05:45 PT 13.7 SECONDS (9.4-12.5) H 11/02/17 05:15 INR 1.19 11/02/17 05:15 APTT 28.9 Seconds (25.1-36.5) 11/02/17 05:15 - Constitutional Appears: Well, Non-toxic, No Acute Distress - Head Exam Head Exam: NORMAL INSPECTION - Eye Exam Eye Exam: Normal appearance - ENT Exam ENT Exam: Mucous Membranes Moist Additional comments: hx hard of hearing - Neck Exam Neck Exam: Normal Inspection - Respiratory Exam Respiratory Exam: NORMAL BREATHING PATTERN. absent: Rales, Rhonchi, Wheezes, Respiratory Distress - Cardiovascular Exam Cardiovascular Exam: RRR, +S1, +S2 - GI/Abdominal Exam GI & Abdominal Exam: Soft, Normal Bowel Sounds. absent: Distended, Tenderness - Extremities Exam Extremities Exam: absent: Pedal Edema - Back Exam Back Exam: NORMAL INSPECTION - Neurological Exam Neurological Exam: Alert, Awake, CN II-XII Intact, Normal Gait, Oriented x3 - Psychiatric Exam Psychiatric exam: Normal Mood - Skin Skin Exam: Normal Color, Warm Assessment and Plan - Assessment and Plan (Free Text) Assessment: 66 year old Female with a PMH of DM2, HTN, HLD, medication non- compliance, Asthma and questionable CHF with morbid obesity who presents to the ED with shortness of breath x1 week that is worsening. V/Q scan has low probability of PE; patient is not a candidate for CT/PE. CT Chest showed large hiatus hernia, no signs of pneumonia, cardiomegaly and moderate vascular congestion. Breathing has improved with diuresis and breathing treatments. Plan: 1. SOB likely 2/2 CHF exacerbation - Continue Lasix 40 mg twice daily IVP - Continue Xopenex every 6 - Tylenol as needed - MUGA scan reviewed, EF 41% - Cardiology consulted, recs appreciated - strict I/O - elevate head of bed - SCDs - OOB as tolerated - showed w/ assistance 2. DM2 w/ medication non-compliance - Levemir 30u HS - ISS - CCD - podiatry consulted, recs appreciated 3. Hx HTN - monitor vital signs 4. Hx HLD - cont Lipitor 5. PPX - PTX for GI ppx - Lovenox for DVT ppx Case was reviewed and discussed with attending, Dr. Cyndie Suazo PGY2
--- NOTE | 2017-11-03 16:01 | PN ---
DATE: 11/03/2017 CARDIOLOGY FOLLOWUP SUBJECTIVE: The patient's breathing is better after IV Lasix. PHYSICAL EXAMINATION: VITAL SIGNS: Blood pressure 118/78, the heart rates in the 90s. NECK: Negative JVD. LUNGS: Without rales. HEART: Reveals S1, S2. EXTREMITIES: Decreasing edema. LABORATORY DATA: Hemoglobin is 10.8. Chemistries, BUN and creatinine are 17 and 0.7 Echocardiogram reveals an ejection fraction of 40%. The glucose is 271. IMPRESSION: 1. Acute systolic congestive heart failure. 2. Dyspnea improved. 3. Dilated cardiomyopathy. 4. Hypertension. 5. Hypercholesterolemia. 6. Diabetes mellitus. 7. Morbid obesity. Given these findings, we will increase her Lasix to 40 IV b.i.d. In addition, we will start the patient on afterload reducers and begin an ARB. Kishore Ram MD
--- NOTE | 2017-11-03 17:19 | PN ---
DATE: 11/03/2017 SUBJECTIVE: The patient is seen in room 261, bed 2. The patient is sitting up in the bed with the patient's family at bedside. The patient is alert, awake, oriented x3. The patient does not offer any complaints of chest pain or shortness of breath. Denies nausea, vomiting, diarrhea. Denies PND. Denies orthopnea. Denies hemoptysis. Denies melena. PHYSICAL EXAMINATION: GENERAL: The patient is seen sitting up in the bed. The patient is alert, awake, oriented x3. HEENT: Head examination normocephalic, atraumatic. HEENT examination shows pinkish pale conjunctivae. Anicteric sclerae. No oropharyngeal lesion. No neck rigidity. CHEST: Kyphosis. LUNGS: Shows no rales, crackles or wheezing. Occasional rhonchi, upper lung steven. CARDIOVASCULAR: S1, S2. Regular rhythm. Questionable soft systolic murmur, left sternal border, right second intercostal space, left second intercostal space. ABDOMEN: Super morbidly obese with no appreciable hepatosplenomegaly secondary to obesity. GENITALIA: Female. EXTREMITY: Shows complete resolution of the pitting edema of the lower extremity. MUSCULOSKELETAL: Shows an elevated body mass index of close to 53/54. VITAL SIGNS: Blood pressure 148/88, 152/84; T-max 98.4; telemetry shows sinus rhythm, heart rate in 70s, 80s beats per minute. O2 sat is 98%, 95%, 97%. Intake output as per the [employer]. DIAGNOSTIC DATA: No CBC from today. Chemistry, CMP, LFTs from 11/03/2017 reviewed. The patient's hypokalemia has resolved. Glucose is still elevated in mid to high 200s. A MUGA scan which was done yesterday shows decreased ejection fraction and global left ventricular hypokinesis with decreased ejection fraction in mid 40%. Right ventricular imaging was normal. IMPRESSION AND PLAN: 1. Acute systolic congestive heart failure with elevated BNP and symptoms of shortness of breath. 2. Cardiomyopathy with decreased ejection fraction of 40%. 3. Global left ventricular hypokinesis. 4. Hypertension. 5. Super morbid obesity with elevated body mass index of greater than 53. 6. Hypertension. 7. Questionable history of asthma. 8. Uncontrolled insulin-requiring diabetes mellitus with hyperglycemia and elevated hemoglobin A1c of greater than 9.4. 9. Hyperlipidemia. 10. Valvular heart disorder. 11. Microcytic iron-deficiency anemia. 12. Deconditioning secondary to morbid obesity. Plan at this time, the patient has been ordered repeat labs. The patient is awaiting transfer to telemetry when accepted. The patient will be continued on repeat labs. Current consultation cardiology. The patient will be continued on the above therapeutic intervention as per the MAR, which was reviewed. The patient's IV Lasix is decreased to 40 mg IV daily. The patient's BNP has normalized. The patient and the patient's family present at the bedside updated about the patient's condition, diagnoses, treatment plan, management plan and evaluation and possible transfer to TCU was explained discussed with the patient and the patient's family who are in agreement. The patient will be discharged and transferred to TCU when accepted. Dictated and electronically signed, not read. Tal Agee MD
[2017-11-03 18:24] LABS: HEMOGLOBIN A 96.8 Percent (>96.0)
[2017-11-04] MEDS: Pantoprazole 40 mg EC Tab PO SCH (06:12)
--- NOTE | 2017-11-04 07:48 | CP.PCM.PN ---
Subjective - Date & Time of Evaluation Date of Evaluation: 11/04/17 Time of Evaluation: 07:25 - Subjective Subjective: (covering for Dr. Agee) Patient is seen this morning. She is lying in bed in room 374 bed 1. She says that her breathing has improved. Objective - Vital Signs/Intake and Output Vital Signs (last 24 hours): Temp Pulse Resp BP Pulse Ox 97.7 F 71 20 123/59 L 97 11/03/17 17:35 11/03/17 17:35 11/03/17 17:35 11/03/17 17:43 11/03/17 17:35 - Medications Medications: Current Medications Acetaminophen (Tylenol 325mg Tab) 650 mg PO Q6 PRN PRN Reason: TEMP>=99.5F Acetaminophen (Tylenol 650 Mg Supp) 650 mg RC Q6H PRN PRN Reason: TEMP>=99.5F Aspirin (Ecotrin) 81 mg PO DAILY [facility] Last Admin: 11/03/17 10:06 Dose: 81 mg Atorvastatin Calcium (Lipitor) 40 mg PO DIN [facility] Last Admin: 11/03/17 16:52 Dose: 40 mg Dextrose (Dextrose 50% Inj) 0 ml IV STAT PRN; Protocol PRN Reason: Hypoglycemia Protocol Docusate Sodium (Colace) 100 mg PO TID [facility] Last Admin: 11/03/17 17:54 Dose: Not Given Enoxaparin Sodium (Lovenox) 40 mg SC DAILY [facility] PRN Reason: Protocol Last Admin: 11/03/17 10:05 Dose: 40 mg Ergocalciferol (Drisdol 50,000 Intl Units Cap) 1 cap PO Q7D [facility] Last Admin: 11/02/17 12:36 Dose: 1 cap Furosemide (Lasix) 40 mg IVP BID [facility] Last Admin: 11/03/17 17:43 Dose: 40 mg Dextrose (Dextrose 5% In Water 1000 Ml) 1,000 mls @ 0 mls/hr IV .Q0M PRN; Protocol; Per Protocol PRN Reason: Hypoglycemia Protocol Insulin Detemir (Levemir) 30 unit SC HS [facility] Last Admin: 11/03/17 22:12 Dose: 30 units Insulin Human Lispro (Humalog Med) 0 units SC ACHS [facility] PRN Reason: Protocol Last Admin: 11/03/17 22:14 Dose: Not Given Levalbuterol HCl (Xopenex) 0.63 mg IH [id number] [facility] Last Admin: 11/03/17 19:40 Dose: 0.63 mg Losartan Potassium (Cozaar) 25 mg PO DAILY [facility] Last Admin: 11/03/17 14:16 Dose: 25 mg Magnesium Oxide (Mag-Ox) 400 mg PO Q8H [facility] Last Admin: 11/03/17 22:14 Dose: 400 mg Ondansetron HCl (Zofran Inj) 4 mg IVP Q4H PRN PRN Reason: Nausea/Vomiting Pantoprazole Sodium (Protonix Ec Tab) 40 mg PO 0600 [facility] Last Admin: 11/04/17 06:12 Dose: 40 mg Polyethylene Glycol (Miralax) 17 gm PO BID [facility] Last Admin: 11/03/17 17:53 Dose: Not Given Potassium Chloride (K-Dur 20 Meq Er Tab) 20 meq PO BID [facility] Last Admin: 11/03/17 17:44 Dose: 20 meq - Labs Labs: 11/02/17 05:15 11/03/17 05:45 PT 13.7 SECONDS (9.4-12.5) H 11/02/17 05:15 INR 1.19 11/02/17 05:15 APTT 28.9 Seconds (25.1-36.5) 11/02/17 05:15 - Constitutional Appears: No Acute Distress - Head Exam Head Exam: ATRAUMATIC, NORMOCEPHALIC - Respiratory Exam Respiratory Exam: Decreased Breath Sounds - Cardiovascular Exam Cardiovascular Exam: +S1, +S2 - GI/Abdominal Exam GI & Abdominal Exam: Soft, Normal Bowel Sounds. absent: Tenderness - Extremities Exam Extremities Exam: Normal Inspection - Neurological Exam Neurological Exam: Alert, Awake, Oriented x3 Assessment and Plan - Assessment and Plan (Free Text) Assessment: Acute systolic heart failure Hypertension Morbid obesity Insulin dependent diabetes mellitus Plan: continue IV Lasix as per cardiology I's and O's shows the patient to be in slightly positive balance, but daily weights shows a decrease of 5 pounds over the last couple days. continue ASA, Losartan and Lipitor; will repeat CXR continue Levemir and insulin sliding scale coverage as needed for PT evaluation and possible TRCU
[2017-11-04] MEDS: Levalbuterol 0.63 MG/3 ML Inhal Soln UD IH SCH ×2 (07:50→13:12)
[2017-11-04 08:24] VITALS: BP 117/70; PULSE 92; TEMP 98.3; O2SAT 98
[2017-11-04] MEDS: Insulin Lispro (humaLOG) MEDIUM Coverage SC SCH ×2 (08:27→12:04)
[2017-11-04] MEDS: Magnesium Oxide 400 mg Tab UD PO SCH (08:27)
[2017-11-04] MEDS: Enoxaparin 40 mg Syringe SC SCH (09:12)
[2017-11-04] MEDS: Potassium Chloride 20 mEq ER Tab PO SCH (09:12)
[2017-11-04] MEDS: POLYETHYLENE GLYCOL 3350 17 GM/Dose PACKET PO SCH (09:13)
--- NOTE | 2017-11-04 11:01 | RAD ---
Date of service: 11/04/2017 HISTORY: CHF - compare to previous COMPARISON: 10/31/2017 TECHNIQUE: Chest PA and lateral FINDINGS: LUNGS: No active pulmonary disease. PLEURA: No significant pleural effusion identified. No pneumothorax apparent. CARDIOVASCULAR: Improved vascular congestion OSSEOUS STRUCTURES: No significant abnormalities. VISUALIZED UPPER ABDOMEN: Normal. OTHER FINDINGS: None. IMPRESSION: No active disease.
--- NOTE | 2017-11-04 12:56 | PN ---
DATE: 11/04/2017 CARDIOLOGY FOLLOWUP SUBJECTIVE: The patient's breathing is much improved. PHYSICAL EXAMINATION: VITAL SIGNS: Blood pressure 117/78, heart rates in the 90s. NECK: Negative JVD. LUNGS: Decreased breath sounds without rales. HEART: Reveals S1 and S2. EXTREMITIES: Without change. LABORATORY DATA: BUN and creatinine not measured today. Glucose is 289. IMPRESSION: 1. Congestive heart failure, which has improved. 2. Dilated cardiomyopathy. 3. Hypertension. 4. Obesity. 5. Hypercholesterolemia. PLAN: The patient is tolerating her ARB. We will continue her diuretics and change from IV to p.o. Kishore Ram MD
--- NOTE | 2017-11-04 15:16 | CP.PCM.DIS ---
Provider - Provider Date of Admission: 11/01/17 00:35 Attending physician: Tal Agee MD Primary care physician: Abebe Ramos DO Time Spent in preparation of Discharge (in minutes): 40 Hospital Course - Lab Results Lab Results: Most Recent Lab Values WBC 9.9 10^3/ul (4.5-11.0) 11/02/17 05:15 RBC 5.03 10^6/uL (3.5-6.1) 11/02/17 05:15 Hgb 10.8 g/dL (12.0-16.0) L 11/02/17 05:15 Hct 35.1 % (36.0-48.0) L 11/02/17 05:15 MCV 69.8 fl (80.0-105.0) L 11/02/17 05:15 MCH 21.5 pg (25.0-35.0) L 11/02/17 05:15 MCHC 30.8 g/dl (31.0-37.0) L 11/02/17 05:15 RDW 17.1 % (11.5-14.5) H 11/02/17 05:15 Plt Count 222 10^3/uL (120.0-450.0) 11/02/17 05:15 MPV 10.0 fl (7.0-11.0) 11/02/17 05:15 Gran % 70.8 % (50.0-68.0) H 11/02/17 05:15 Lymph % (Auto) 20.8 % (22.0-35.0) L 11/02/17 05:15 [place] % (Auto) 5.6 % (1.0-6.0) 11/02/17 05:15 Eos % (Auto) 2.7 % (1.5-5.0) 11/02/17 05:15 Baso % (Auto) 0.1 % (0.0-3.0) 11/02/17 05:15 Gran # 7.01 (1.4-6.5) H 11/02/17 05:15 Lymph # (Auto) 2.1 (1.2-3.4) 11/02/17 05:15 [place] # (Auto) 0.6 (0.1-0.6) 11/02/17 05:15 Eos # (Auto) 0.3 (0.0-0.7) 11/02/17 05:15 Baso # (Auto) 0.01 K/mm3 (0.0-2.0) 11/02/17 05:15 Retic Count 1.57 % (0.5-1.5) H 10/31/17 08:30 Sickle Cell Screen Negative (Negative) 10/31/17 11:00 Hemoglobin A 96.8 Percent (>96.0) 10/31/17 11:00 Hemoglobin A2 1.0 Percent (1.8-3.5) L 10/31/17 11:00 Hemoglobin C 0.0 Percent (0.0-0.0) 10/31/17 11:00 Hemoglobin F () <1.0 Percent (<2.0) 10/31/17 11:00 Hemoglobin S 0.0 Percent (0.0-0.0) 10/31/17 11:00 Variant Hemoglobin 1.2 Percent (0.0-0.0) H 10/31/17 11:00 Hemoglobinopathy Red Blood Count 5.03 Mill/mcL (3.80-5.10) 10/31/17 11:00 Hemoglobinopathy Hct 35.4 % (35.0-45.0) 10/31/17 11:00 Hemoglobinopathy Hgb 11.0 g/dL (11.7-15.5) L 10/31/17 11:00 Hemoglobinopathy MCV 70.5 fL (80.0-100.0) L 10/31/17 11:00 Hemoglobinopathy MCH 21.9 pg (27.0-33.0) L 10/31/17 11:00 Hemoglobinopathy RDW 18.0 % (11.0-15.0) H 10/31/17 11:00 Hemoglobinopathy Interp See note 10/31/17 11:00 PT 13.7 SECONDS (9.4-12.5) H 11/02/17 05:15 INR 1.19 11/02/17 05:15 APTT 28.9 Seconds (25.1-36.5) 11/02/17 05:15 D-Dimer, Quantitative 513 ng/mlDDU (0-243) H 10/31/17 01:23 Sodium 138 mmol/L (132-148) 11/03/17 05:45 Potassium 4.5 mmol/L (3.6-5.0) 11/03/17 05:45 Chloride 98 mmol/L (98-107) 11/03/17 05:45 Carbon Dioxide 35 mmol/L (21-33) H 11/03/17 05:45 Anion Gap 9 (10-20) L 11/03/17 05:45 BUN 17 mg/dL (7-21) 11/03/17 05:45 Creatinine 0.7 mg/dl (0.7-1.2) 11/03/17 05:45 Est GFR ( Amer) > 60 11/03/17 05:45 Est GFR (Non-Af Amer) > 60 11/03/17 05:45 POC Glucose (mg/dL) 177 mg/dL (65-110) H 11/04/17 11:17 Random Glucose 271 mg/dL (70-110) H 11/03/17 05:45 Hemoglobin A1c 9.5 % (4.2-6.5) H 10/31/17 16:25 Uric Acid 4.4 mg/dL (2.5-6.2) 10/31/17 11:00 Calcium 9.3 mg/dL (8.4-10.5) 11/03/17 05:45 Phosphorus 3.2 mg/dL (2.5-4.5) 11/03/17 05:45 Magnesium 1.8 mg/dL (1.7-2.2) 11/03/17 05:45 Iron 56 ug/dL (45-180) 10/31/17 11:00 TIBC 255 ug/dL (265-497) L 10/31/17 11:00 % Saturation 22 % (20-55) 10/31/17 11:00 Transferrin 195.92 mg/dL (206-381) L 10/31/17 11:00 Mendy Transferrin Receptr 2.14 mg/L (0.76-1.76) H 10/31/17 11:00 Ferritin 51.5 ng/mL 10/31/17 11:00 Total Bilirubin 0.5 mg/dL (0.2-1.3) 11/03/17 05:45 Direct Bilirubin 0.2 mg/dL (0.0-0.4) 11/03/17 05:45 AST 18 U/L (14-36) 11/03/17 05:45 ALT 15 U/L (7-56) 11/03/17 05:45 Alkaline Phosphatase 73 U/L (38-126) 11/03/17 05:45 Lactate Dehydrogenase 538 U/L (333-699) 10/31/17 01:23 Total Creatine Kinase 58 U/L (35-230) 10/31/17 19:56 Troponin I < 0.01 ng/mL D 10/31/17 19:56 NT-Pro-B Natriuret Pep 370 pg/mL (0-450) 11/03/17 05:45 Total Protein 7.2 g/dL (5.8-8.3) 11/03/17 05:45 Albumin 3.3 g/dL (3.0-4.8) 11/03/17 05:45 Globulin 3.9 gm/dL 11/03/17 05:45 Albumin/Globulin Ratio 0.9 (1.1-1.8) L 11/03/17 05:45 Triglycerides 85 mg/dL (35-160) 10/31/17 11:00 Cholesterol 155 mg/dL (130-200) 10/31/17 11:00 LDL Cholesterol Direct 89 mg/dL (0-129) 10/31/17 11:00 HDL Cholesterol 38 mg/dL (29-60) 10/31/17 11:00 Vitamin B12 482 pg/mL (239-931) 10/31/17 11:00 25-OH Vitamin D Total 13.2 NG/ML (30.0-100.0) L 10/31/17 11:00 Folate 10.3 ng/mL 10/31/17 11:00 Free T4 1.28 ng/dL (0.78-2.19) 10/31/17 11:00 Thyroxine (T4) 9.1 ug/dL (5.5-11.0) 10/31/17 11:00 Free T3 pg/mL 3.16 pg/mL (2.77-5.27) 10/31/17 11:00 Total T3 0.97 ng/mL (0.97-1.69) 10/31/17 11:00 TSH 3rd Generation 2.11 mIU/mL (0.46-4.68) 10/31/17 11:00 Urine Color Yellow (YELLOW) 10/31/17 06:45 Urine Appearance Clear (CLEAR) 10/31/17 06:45 Urine pH 6.0 (4.7-8.0) 10/31/17 06:45 Ur Specific [place] 1.025 (1.005-1.035) 10/31/17 06:45 Urine Protein 100 mg/dL (<30 mg/dL) H 10/31/17 06:45 Urine Glucose (UA) 100 mg/dL (NEGATIVE) H 10/31/17 06:45 Urine Ketones Negative mg/dL (NEGATIVE) 10/31/17 06:45 Urine Blood Negative (NEGATIVE) 10/31/17 06:45 Urine Nitrate Negative (NEGATIVE) 10/31/17 06:45 Urine Bilirubin Negative (NEGATIVE) 10/31/17 06:45 Urine Urobilinogen 0.2 E.U./dL (<1 E.U./dL) 10/31/17 06:45 Ur Leukocyte Esterase Negative Yuly/uL (NEGATIVE) 10/31/17 06:45 Urine RBC 1 - 3 /hpf (0-2) 10/31/17 06:45 Urine WBC 2 - 5 /hpf (0-6) 10/31/17 06:45 Ur Epithelial Cells 10 - 12 /hpf (0-5) 10/31/17 06:45 Amorphous Sediment Small 10/31/17 06:45 Urine Bacteria Many (NEG) 10/31/17 06:45 Coarse Granular Casts Trace /hpf (0-2) H 10/31/17 06:45 Urine Other Uyeast 10/31/17 06:45 - Hospital Course Hospital Course: 66-year-old -[place] female with a PMH of DM2, HTN, HLD, medication non- compliance, morbid obesity and questionable CHF who presented to ED with shortness of breath 1 week worsening over the past 3 days. Dyspnea was exertional, relieved with rest, and resting. Patient has a history of not being able to lie flat, and requiring multiple pillows for sleep. ACS was ruled out. Echo was done but was limited due to body habitus. MUGA scan was suboptimal, showed mild to moderate LV dysfunction, LVEF 41%. CT chest showed large hiatus hernia, cardiomegaly, small bilateral pleural effusions associated with mild to moderate pulmonary vascular congestion, mildly enlarged main pulmonary artery, but no evidence of pneumonia. VQ scan showed low probability for pulmonary embolus. EKG remained unchanged throughout the hospital stay, showing NSR with HR > 90s, possible left atrial enlargement and nonspecific T- wave changes. Patient received diuresis with Lasix and received breathing treatments with Xopenex throughout her stay. Her breathing improved, with less wheezing. Physical therapy evaluated the patient and recommended TCU. On the morning of her discharge from the medical floors, patient's breathing improved, and she was medically optimized. Patient was transferred to TCU. Discharge Exam - Head Exam Head Exam: ATRAUMATIC, NORMOCEPHALIC - Eye Exam Eye Exam: Normal appearance Pupil Exam: NORMAL ACCOMODATION - ENT Exam ENT Exam: Normal Exam - Neck Exam Neck exam: Normal Inspection - Respiratory Exam Respiratory Exam: NORMAL BREATHING PATTERN. absent: Prolonged Expiratory Phase , Rales, Rhonchi, Wheezes, Respiratory Distress - Cardiovascular Exam Cardiovascular Exam: Tachycardia, +S1, +S2. absent: Systolic Murmur - GI/Abdominal Exam GI & Abdominal Exam: Normal Bowel Sounds, Soft, Unremarkable. absent: Distended , Tenderness - Extremities Exam Extremities exam: full ROM, pedal pulses present - Back Exam Back exam: NORMAL INSPECTION - Neurological Exam Neurological exam: Alert, CN II-XII Intact, Oriented x3 - Psychiatric Exam Psychiatric exam: Normal Mood - Skin Skin Exam: Normal Color Discharge Plan - Follow Up Plan Condition: GUARDED Disposition: REHAB FACILITY/REHAB UNIT Instructions: Heart Failure, Adult (DC) Additional Instructions: - patient will be transferred to TCU for rehab - please continue meds as per MED REC Referrals: Abebe Ramos DO [Primary Care Provider] -
== END 2017-11-04 14:34 | DRG 292 ==
LOC: EDBD → ED 01:14 → ERH 06:00 → 2RNO 14:41 → OBSVTOIN 11-01 00:35 → 3RSO 11-03 16:57
PROVIDERS: ADMIT Internal Medicine; ATTEND Internal Medicine
PROC: 0HBRXZZ Excision of Toe Nail, External Approach (ICD-10-PCS; principal; 2017-11-01)
PROC: 0HBRXZZ Excision of Toe Nail, External Approach (ICD-10-PCS; 2017-11-01)
PROC: 0HBRXZZ Excision of Toe Nail, External Approach (ICD-10-PCS; 2017-11-01)
PROC: 0HBRXZZ Excision of Toe Nail, External Approach (ICD-10-PCS; 2017-11-01)
PROC: 0HBRXZZ Excision of Toe Nail, External Approach (ICD-10-PCS; 2017-11-01)
PROC: 0HBRXZZ Excision of Toe Nail, External Approach (ICD-10-PCS; 2017-11-01)
PROC: 0HBRXZZ Excision of Toe Nail, External Approach (ICD-10-PCS; 2017-11-01)
PROC: 0HBRXZZ Excision of Toe Nail, External Approach (ICD-10-PCS; 2017-11-01)
PROC: 0HBRXZZ Excision of Toe Nail, External Approach (ICD-10-PCS; 2017-11-01)
PROC: 0HBRXZZ Excision of Toe Nail, External Approach (ICD-10-PCS; 2017-11-01)
DX: I11.0 Hypertensive heart disease with heart failure (principal); J45.901 Unspecified asthma with (acute) exacerbation; Z68.43 Body mass index [BMI] 50.0-59.9, adult; I50.41 Acute combined systolic (congestive) and diastolic (congestive) heart failure; E11.65 Type 2 diabetes mellitus with hyperglycemia; I77.810 Thoracic aortic ectasia; I42.0 Dilated cardiomyopathy; E87.6 Hypokalemia; D50.9 Iron deficiency anemia, unspecified; I27.20 Pulmonary hypertension, unspecified; E78.00 Pure hypercholesterolemia, unspecified; E78.5 Hyperlipidemia, unspecified; E83.42 Hypomagnesemia; E66.01 Morbid (severe) obesity due to excess calories; R79.1 Abnormal coagulation profile; E55.9 Vitamin D deficiency, unspecified; K21.9 Gastro-esophageal reflux disease without esophagitis; K44.9 Diaphragmatic hernia without obstruction or gangrene; K59.00 Constipation, unspecified; L60.3 Nail dystrophy; R91.1 Solitary pulmonary nodule; R26.9 Unspecified abnormalities of gait and mobility; Z72.0 Tobacco use; Z79.83 Long term (current) use of bisphosphonates; Z79.899 Other long term (current) drug therapy; Z79.4 Long term (current) use of insulin; Z91.14 Patient's other noncompliance with medication regimen